=== PATIENT | female | born 1965 | race Caucasian/White ===

== ENCOUNTER 2016-12-06 13:19 | Emergency (ER) | payer OTHER ==
[2016-12-06] MEDS ORDERED: IPRATROPIUM-ALBUTEROL 3 ML NEB INHALATION STA (13:49)
[2016-12-06] MEDS ORDERED: predniSONE 20 MG TAB PO STA (13:50)
--- NOTE | 2016-12-06 13:52 | ED ---
General Adult HPI - General Chief complaint: Shortness of Breath Stated complaint: Cough/SOB Time Seen by Provider: 12/06/16 13:42 Source: patient Mode of arrival: ambulatory Limitations: no limitations - History of Present Illness Initial comments: 51-year-old female with history of asthma presenting for shortness of breath and cough. Patient states she's had symptoms for the past week. She states she 's having worsening productive cough. She has tried a home nebulizer treatment once without much improvement. She denies any recent antibiotic or steroid therapy. She denies any chest pain associated. She denies any fevers or chills. - Related Data Home Medications Medication Instructions Recorded Confirmed ARIPiprazole [Abilify] 30 mg PO HS 06/27/16 12/06/16 DULoxetine HCL [Cymbalta] 20 mg PO HS 06/27/16 12/06/16 Dextroamphetamine/Amphetamine 30 mg PO DAILY 06/27/16 12/06/16 [Adderall] clonazePAM [KlonoPIN] 1 mg PO HS 06/27/16 12/06/16 lamoTRIgine [LaMICtal] 25 mg PO HS 06/27/16 12/06/16 Previous Rx's Medication Instructions Recorded Albuterol Inhaler [Ventolin Hfa 2 puff INHALATION Q6HR PRN #1 12/06/16 Inhaler] inhaler Azithromycin [Zithromax] 250 mg PO DAILY #6 tab 12/06/16 predniSONE 40 mg PO DAILY #10 tab 12/06/16 Allergies Allergy/AdvReac Type Severity Reaction Status Date / Time No Known Allergies Allergy Verified 12/06/16 14:12 Review of Systems ROS Statement: Those systems with pertinent positive or pertinent negative responses have been documented in the HPI. ROS Other: All systems not noted in ROS Statement are negative. Past Medical History Past Medical History: Asthma History of Any Multi-Drug Resistant Organisms: None Reported Past Surgical History: No Surgical Hx Reported Past Psychological History: Bipolar Smoking Status: Current every day smoker Past Alcohol Use History: None Reported Past Drug Use History: None Reported General Exam - General Exam Comments Initial Comments: General: Awake and Alert. No acute distress. Does not appear acutely ill. Obese. Eyes: ROSHAN, EOM intact. No nystagmus. No scleral icterus. HENT: Atraumatic, normocephalic. Mucous membranes moist. Trachea midline. Neck: The neck is supple, there is no tenderness or JVD. Cardiovascular: Regular rate and rhythm. No murmur, rub, or gallop is appreciated. Distal pulses intact. Respiratory: Lungs are clear to auscultation bilaterally. Diffuse wheezes. No rales, rhonchi. No respiratory distress. Gastrointestinal: Soft, Nontender. No rebound or guarding. Non-distended. No masses or organomegaly noted. No CVA tenderness. Musculoskeletal: No tenderness. Normal ROM. No gross deformity. No strength deficits. Neurological: A&Ox3. CN II-XII grossly intact, There are no obvious motor or sensory deficits. Coordination appears grossly intact. Speech is normal. Skin: Skin is warm and dry and no rashes or lesions are noted. Psychiatric: Cooperative, appropriate mood & affect, normal judgment. Limitations: no limitations Course Vital Signs 12/06/16 12/06/16 12/06/16 13:26 13:41 14:04 Temperature 97.6 F Pulse Rate 90 91 Respiratory 18 20 Rate Blood Pressure 120/76 O2 Sat by Pulse 96 Oximetry 12/06/16 12/06/16 12/06/16 14:09 14:22 15:07 Temperature 98.2 F Pulse Rate 97 80 79 Respiratory 18 18 Rate Blood Pressure 142/69 O2 Sat by Pulse 98 98 Oximetry Medical Decision Making - Medical Decision Making 51-year-old female history of tobacco abuse and COPD presenting for cough and shortness of breath. Patient without any significant respiratory distress initial exam. She does have diffuse wheezes. She is given a breathing treatment as well as initial dose of steroids. Chest x-ray is performed without acute process. Given her productive cough and risk with smoking and COPD, plan to cover azithromycin as well as steroid therapy. Patient was written for inhaler. She states she has an old nebulizer that does not always work. Discussed close follow-up with PCP and to discuss getting a new one. On reevaluation patient's wheezing appears improved. She states she is feeling much better. Discussed concerning signs symptoms for immediate return to ED. Patient is otherwise stable for discharge home. Patient is agreeable with plan and discharge home. - Radiology Data Radiology results: report reviewed, image reviewed Disposition Clinical Impression: COPD exacerbation, Cough, Tobacco abuse Disposition: HOME SELF-CARE Condition: Stable Instructions: COPD (Chronic Obstructive Pulmonary Disease) (ED), Acute Cough ( ED) Prescriptions: Albuterol Inhaler [Ventolin Hfa Inhaler] 2 puff INHALATION Q6HR PRN #1 inhaler PRN Reason: Shortness Of Breath Azithromycin [Zithromax] 250 mg PO DAILY #6 tab predniSONE 40 mg PO DAILY #10 tab Referrals: Dora Esquivel III, MD [Primary Care Provider] - 1-2 days Time of Disposition: 14:51
[2016-12-06 14:24] VITALS: RESP 18
--- NOTE | 2016-12-06 14:37 | XR ---
EXAMINATION TYPE: XR chest 2V DATE OF EXAM: 12/06/2016 2:16 PM COMPARISON: 06/27/2016 INDICATION: Cough congestion history of asthma TECHNIQUE: Single frontal view of the chest is obtained. FINDINGS: The heart size is normal. The pulmonary vasculature is normal. The lungs are clear. IMPRESSION: 1. No acute pulmonary process.
[2016-12-06 15:11] VITALS: BP 142/69; PULSE 79; TEMP 98.2
== END 2016-12-06 15:11 | disposition home or self-care (01) ==
LOC: EC 13:19
DX: J44.1 Chronic obstructive pulmonary disease with (acute) exacerbation (principal); F31.9 Bipolar disorder, unspecified; F17.200 Nicotine dependence, unspecified, uncomplicated; Z79.899 Other long term (current) drug therapy
CPT/HCPCS: 99285; 94640; 71020; J7512

== ENCOUNTER 2017-10-17 15:17 | Emergency (ER) | payer OTHER ==
[2017-10-17] MEDS ORDERED: SODIUM CHLORIDE 0.9% 1,000 ML IV STA (15:56)
[2017-10-17 16:25] LABS: Basophils # (A) 0.1 k/uL (0-0.2); Basophils % (A) 1 %; Eosinophils # (A) 0.1 k/uL (0-0.7); Eosinophils % (A) 1 %; HCT 47.1 % (34.0-46.0); Lymphocytes # (A) 1.5 k/uL (1.0-4.8); Lymphocytes % (A) 21 %; MCH 28.6 pg (25.0-35.0); MCHC 31.8 g/dL (31.0-37.0); MCV 90.2 fL (80.0-100.0); Mean Platelet Volume 6.4; Monocytes # (A) 0.5 k/uL (0-1.0); Monocytes % (A) 7 %; Neutrophils # (A) 4.9 k/uL (1.3-7.7); Neutrophils % (A) 69 %; Platelet Count 356 k/uL (150-450); RBC 5.22 m/uL (3.80-5.40); RDW 14.5 % (11.5-15.5)
[2017-10-17 16:36] LABS: ALT 27 U/L (9-52); AST 17 U/L (14-36); Albumin 4.1 g/dL (3.5-5.0); Alkaline Phosphatase 96 U/L (38-126); Anion Gap 12 mmol/L; Blood Urea Nitrogen 11 mg/dL (7-17); Calcium 9.6 mg/dL (8.4-10.2); Carbon Dioxide 23 mmol/L (22-30); Chloride 107 mmol/L (98-107); Glucose 89 mg/dL (74-99); Magnesium 1.9 mg/dL (1.6-2.3); Potassium 4.3 mmol/L (3.5-5.1); Sodium 142 mmol/L (137-145); Total Bilirubin 0.5 mg/dL (0.2-1.3)
[2017-10-17 16:46] LABS: Creatine Kinase 57 U/L (30-135)
--- NOTE | 2017-10-17 16:51 | ED ---
General Adult HPI - General Chief complaint: Recheck/Abnormal Lab/Rx Stated complaint: tired/cannot urinate Time Seen by Provider: 10/17/17 15:50 Source: patient, RN notes reviewed Mode of arrival: ambulatory Limitations: no limitations - History of Present Illness Initial comments: This a 52-year-old female presents emergency Department with complaints of fatigue, decrease appetite. She states that over the last 2 days she just hasn' t felt well. States she does not want to eat or drink. She denies any chest pain, shortness breath, headache or dizziness. She states that she is very thirsty at this time but doesn't have the energy to eat or drink. She denies any known fever denies dysuria or hematuria denies any constipation or diarrhea. - Related Data Home Medications Medication Instructions Recorded Confirmed DULoxetine HCL [Cymbalta] 20 mg PO DAILY 06/27/16 10/17/17 Albuterol Inhaler [Ventolin Hfa 2 puff INHALATION RT-Q6H PRN 10/17/17 10/17/17 Inhaler] Previous Rx's Medication Instructions Recorded Ciprofloxacin HCl [Cipro] 500 mg PO Q12HR #10 tablet 10/17/17 Allergies Allergy/AdvReac Type Severity Reaction Status Date / Time No Known Allergies Allergy Verified 10/17/17 16:52 Review of Systems ROS Statement: Those systems with pertinent positive or pertinent negative responses have been documented in the HPI. ROS Other: All systems not noted in ROS Statement are negative. Past Medical History Past Medical History: Asthma History of Any Multi-Drug Resistant Organisms: None Reported Past Surgical History: No Surgical Hx Reported Past Psychological History: Bipolar Smoking Status: Current every day smoker Past Alcohol Use History: None Reported Past Drug Use History: None Reported General Exam Limitations: no limitations General appearance: alert, in no apparent distress Head exam: Present: atraumatic, normocephalic, normal inspection Eye exam: Present: normal appearance, PERRL, EOMI. Absent: scleral icterus, conjunctival injection, periorbital swelling ENT exam: Present: normal exam, normal oropharynx, mucous membranes moist, TM's normal bilaterally, normal external ear exam Neck exam: Present: normal inspection, full ROM. Absent: tenderness, meningismus, lymphadenopathy Respiratory exam: Present: normal lung sounds bilaterally. Absent: respiratory distress, wheezes, rales, rhonchi, stridor Cardiovascular Exam: Present: regular rate, normal rhythm, normal heart sounds. Absent: systolic murmur, diastolic murmur, rubs, gallop, clicks GI/Abdominal exam: Present: soft, normal bowel sounds. Absent: distended, tenderness, guarding, rebound, rigid Back exam: Absent: CVA tenderness (R), CVA tenderness (L) Skin exam: Present: warm, dry, intact, normal color. Absent: rash Course Vital Signs 10/17/17 15:32 Temperature 97.5 F L Pulse Rate 66 Respiratory 17 Rate Blood Pressure 129/81 O2 Sat by Pulse 93 L Oximetry EKG Findings - EKG Comments: EKG Findings:: EKG performed at 16:16 normal sinus rhythm with a rate of 66. pr 168 QRS 82 QT/QTC 414/434 Medical Decision Making - Medical Decision Making 52-year-old female presented emergency department for weakness, not feeling well. Patient does have urinary tract infection. Patient's labwork otherwise unremarkable. Patient was well-hydrated emergency department. She'll be discharged on antibiotics. - Lab Data Result diagrams: 10/17/17 16:03 10/17/17 16:03 Lab Results 10/17/17 10/17/17 10/17/17 Range/Units 16:03 16:03 16:03 WBC 7.0 (3.8-10.6) k/uL RBC 5.22 (3.80-5.40) m/uL Hgb 15.0 (11.4-16.0) gm/dL Hct 47.1 H (34.0-46.0) % MCV 90.2 (80.0-100.0) fL MCH 28.6 (25.0-35.0) pg MCHC 31.8 (31.0-37.0) g/dL RDW 14.5 (11.5-15.5) % Plt Count 356 (150-450) k/uL Neutrophils % 69 % Lymphocytes % 21 % Monocytes % 7 % Eosinophils % 1 % Basophils % 1 % Neutrophils # 4.9 (1.3-7.7) k/uL Lymphocytes # 1.5 (1.0-4.8) k/uL Monocytes # 0.5 (0-1.0) k/uL Eosinophils # 0.1 (0-0.7) k/uL Basophils # 0.1 (0-0.2) k/uL Sodium 142 (137-145) mmol/L Potassium 4.3 (3.5-5.1) mmol/L Chloride 107 (98-107) mmol/L Carbon Dioxide 23 (22-30) mmol/L Anion Gap 12 mmol/L BUN 11 (7-17) mg/dL Creatinine 0.70 (0.52-1.04) mg/dL Est GFR (MDRD) Af Amer >60 (>60 ml/min/1.73 sqM) Est GFR (MDRD) Non-Af >60 (>60 ml/min/1.73 sqM) Glucose 89 (74-99) mg/dL Calcium 9.6 (8.4-10.2) mg/dL Magnesium 1.9 (1.6-2.3) mg/dL Total Bilirubin 0.5 (0.2-1.3) mg/dL AST 17 (14-36) U/L ALT 27 (9-52) U/L Alkaline Phosphatase 96 (38-126) U/L Total Creatine Kinase 57 (30-135) U/L CK-MB (CK-2) 0.2 (0.0-2.4) ng/mL CK-MB (CK-2) Rel Index 0.4 Troponin I <0.012 (0.000-0.034) ng/mL Total Protein 7.0 (6.3-8.2) g/dL Albumin 4.1 (3.5-5.0) g/dL TSH 1.010 (0.465-4.680) mIU/L Urine Color Urine Appearance (Clear) Urine pH (5.0-8.0) Ur Specific [place] (1.001-1.035) Urine Protein (Negative) Urine Glucose (UA) (Negative) Urine Blood (Negative) Urine Nitrite (Negative) Urine Bilirubin (Negative) Urine Urobilinogen (<2.0) mg/dL Ur Leukocyte Esterase (Negative) Urine RBC (0-5) /hpf Urine WBC (0-5) /hpf Ur Squamous Epith Cells (0-4) /hpf Urine Mucus (None) /hpf 10/17/17 Range/Units 16:43 WBC (3.8-10.6) k/uL RBC (3.80-5.40) m/uL Hgb (11.4-16.0) gm/dL Hct (34.0-46.0) % MCV (80.0-100.0) fL MCH (25.0-35.0) pg MCHC (31.0-37.0) g/dL RDW (11.5-15.5) % Plt Count (150-450) k/uL Neutrophils % % Lymphocytes % % Monocytes % % Eosinophils % % Basophils % % Neutrophils # (1.3-7.7) k/uL Lymphocytes # (1.0-4.8) k/uL Monocytes # (0-1.0) k/uL Eosinophils # (0-0.7) k/uL Basophils # (0-0.2) k/uL Sodium (137-145) mmol/L Potassium (3.5-5.1) mmol/L Chloride (98-107) mmol/L Carbon Dioxide (22-30) mmol/L Anion Gap mmol/L BUN (7-17) mg/dL Creatinine (0.52-1.04) mg/dL Est GFR (MDRD) Af Amer (>60 ml/min/1.73 sqM) Est GFR (MDRD) Non-Af (>60 ml/min/1.73 sqM) Glucose (74-99) mg/dL Calcium (8.4-10.2) mg/dL Magnesium (1.6-2.3) mg/dL Total Bilirubin (0.2-1.3) mg/dL AST (14-36) U/L ALT (9-52) U/L Alkaline Phosphatase (38-126) U/L Total Creatine Kinase (30-135) U/L CK-MB (CK-2) (0.0-2.4) ng/mL CK-MB (CK-2) Rel Index Troponin I (0.000-0.034) ng/mL Total Protein (6.3-8.2) g/dL Albumin (3.5-5.0) g/dL TSH (0.465-4.680) mIU/L Urine Color Yellow Urine Appearance Cloudy H (Clear) Urine pH 5.5 (5.0-8.0) Ur Specific [place] 1.023 (1.001-1.035) Urine Protein 1+ H (Negative) Urine Glucose (UA) Negative (Negative) Urine Blood Negative (Negative) Urine Nitrite Positive H (Negative) Urine Bilirubin Negative (Negative) Urine Urobilinogen 4.0 (<2.0) mg/dL Ur Leukocyte Esterase Small H (Negative) Urine RBC 1 (0-5) /hpf Urine WBC 16 H (0-5) /hpf Ur Squamous Epith Cells 3 (0-4) /hpf Urine Mucus Many H (None) /hpf Disposition Clinical Impression: UTI (urinary tract infection), Fatigue Disposition: HOME SELF-CARE Condition: Stable Instructions: Urinary Tract Infection in Women (ED) Additional Instructions: Please return to the Emergency Department if symptoms worsen or any other concerns. Prescriptions: Ciprofloxacin HCl [Cipro] 500 mg PO Q12HR #10 tablet Referrals: Ubaldo Tee DO [Primary Care Provider] - 1-2 days Time of Disposition: 17:17
--- NOTE | 2017-10-17 16:53 | XR ---
EXAMINATION TYPE: XR chest 2V DATE OF EXAM: 10/17/2017 COMPARISON: 12/06/2016 HISTORY: Weakness TECHNIQUE: Frontal and lateral views of the chest are obtained. FINDINGS: Heart and mediastinum are normal. Lungs are clear. Diaphragm is normal. Bony thorax appear s intact. IMPRESSION: No active cardiopulmonary disease. No significant change compared to old exam.
[2017-10-17 16:59] LABS: Creatine Kinase MB 0.2 ng/mL (0.0-2.4); Troponin I <0.012 ng/mL (0.000-0.034)
[2017-10-17 17:09] LABS: Appearance,Urine Cloudy (Clear); Bilirubin,Urine Negative (Negative); Blood,Urine Negative (Negative); Color,Urine Yellow; Glucose,Urine (UA) Negative (Negative); Ketones,Urine 2+ (Negative); Leukocyte Esterase,Urine Small (Negative); Mucus,Urine Many /hpf; Nitrite,Urine Positive (Negative); PH, Urine 5.5 (5.0-8.0); Protein,Urine 1+ (Negative); RBC,Urine 1 /hpf (0-5); Specific Gravity,Urine 1.023 (1.001-1.035); Squamous Epithelial Cell,Urine 3 /hpf (0-4); WBC,Urine 16 /hpf (0-5)
[2017-10-17 17:46] VITALS: BP 120/72; PULSE 86; RESP 16; TEMP 98.4
== END 2017-10-17 17:45 | disposition home or self-care (01) ==
LOC: EC 15:17
DX: N39.0 Urinary tract infection, site not specified (principal); R63.1 Polydipsia; F31.9 Bipolar disorder, unspecified; F17.200 Nicotine dependence, unspecified, uncomplicated; Z79.899 Other long term (current) drug therapy
CPT/HCPCS: 36415; 71046; 80053; 81001; 82550; 82553; 83735; 84443; 84484; 85025; 93005; 96360; 99284

== ENCOUNTER 2017-12-18 15:16 | Emergency (ER) | payer OTHER ==
[2017-12-18 16:07] VITALS: BP 105/70; PULSE 79; RESP 18; TEMP 98.3
--- NOTE | 2017-12-18 16:49 | ED ---
General Adult HPI - General Chief complaint: Animal Bite Stated complaint: Cat Bite Time Seen by Provider: 12/18/17 16:30 Source: patient, RN notes reviewed Mode of arrival: ambulatory Limitations: no limitations - History of Present Illness Initial comments: 52-year-old female presents to the emergency department for chief complaint of cat bite x 1 hour. Patient states that an hour ago her cat was about 5 or other cat when she intervened and was bitten and scratched on the right hand. Patient states he has cats are up-to-date with the rabies vaccinations and all other vaccinations. Patient states these cats are her own cats. Patient denies any other complaints including shortness of breath, chest pain, abdominal pain, nausea or vomiting. - Related Data Home Medications Medication Instructions Recorded Confirmed DULoxetine HCL [Cymbalta] 20 mg PO DAILY 06/27/16 10/17/17 Albuterol Inhaler [Ventolin Hfa 2 puff INHALATION RT-Q6H PRN 10/17/17 10/17/17 Inhaler] Previous Rx's Medication Instructions Recorded Ciprofloxacin HCl [Cipro] 500 mg PO Q12HR #10 tablet 10/17/17 Amoxicillin/Potassium Clav 1 tab PO Q12HR #20 tab 12/18/17 [Augmentin 875-125 Tablet] Allergies Allergy/AdvReac Type Severity Reaction Status Date / Time No Known Allergies Allergy Verified 12/18/17 16:07 Review of Systems ROS Statement: Those systems with pertinent positive or pertinent negative responses have been documented in the HPI. ROS Other: All systems not noted in ROS Statement are negative. Past Medical History Past Medical History: Asthma History of Any Multi-Drug Resistant Organisms: None Reported Past Surgical History: No Surgical Hx Reported Past Psychological History: Bipolar Smoking Status: Current every day smoker Past Alcohol Use History: None Reported Past Drug Use History: None Reported General Exam Limitations: no limitations General appearance: alert, in no apparent distress Head exam: Present: atraumatic Respiratory exam: Present: normal lung sounds bilaterally. Absent: respiratory distress, wheezes, rales, rhonchi, stridor Cardiovascular Exam: Present: regular rate, normal rhythm, normal heart sounds. Absent: systolic murmur, diastolic murmur, rubs, gallop, clicks Extremities exam: Present: normal inspection, full ROM (in RUE. All fingers have full flexion and extension with resistance. No tendon injury. No deeper tissue injury. ), normal capillary refill (< 2 seconds and radial pulse 2+ in RUE.), other (there is a 0.5 cm laceration on the proximal 2nd metatarsal and 2 cm laceration on the proximal 4th metatarsal of the L hand. There is some ecchymosis around the lacerations. No redness or drainage from the wounds. No signs of infection. No streaking redness. ). Absent: tenderness (in RUE), pedal edema, joint swelling, calf tenderness Course Vital Signs 12/18/17 16:04 Temperature 98.3 F Pulse Rate 79 Respiratory 18 Rate Blood Pressure 105/70 O2 Sat by Pulse 94 L Oximetry Medical Decision Making - Medical Decision Making 52-year-old female presents to the emergency department for a chief complaint of Bites to the right hand. There are 2 small lacerations on the dorsal right hand as well as scratches. No signs of infection noted. Neurovascular intact in full range of motion of the right hand. Wound was soaked in sterile water, iodine, and soap for 20 minutes. Wound was cleaned out with saline jet lavage. It was cleaned out with iodine. Wounds were covered with bacitracin and Band- Aids. Wounds were left open to allow for drainage. Patient is to follow-up with orthopedics in one to 2 days. She can follow-up with her primary care provider if she cannot get into see orthopedics. She is to return to the emergency Department if she notices any signs of infection, fever, or worsening symptoms. Signs of infection were discussed. Patient agrees with this route of action. Disposition Clinical Impression: Cat bite Disposition: HOME SELF-CARE Condition: Good Instructions: Animal Bite (ED) Additional Instructions: Please keep wounds clean. You may cover wounds with a loose Band-Aid. Finish antibiotic as directed. You may ice and elevate the hand as discussed. Follow up with orthopedics tomorrow. If any signs of infection occur such as spreading redness, streaking redness, drainage, or fevers please return to the emergency department. Prescriptions: Amoxicillin/Potassium Clav [Augmentin 875-125 Tablet] 1 tab PO Q12HR #20 tab Is patient prescribed a controlled substance at d/c from ED?: No Referrals: None,Stated [Primary Care Provider] - 1-2 days Krysta Hwang DO [Doctor of Osteopathic Medicine] - 1-2 days Time of Disposition: 17:11
[2017-12-18] MEDS ORDERED: DIPH,PERTUS(ACELL)TETVAC-LF 0.5 ML VIAL IM ONE (16:53)
== END 2017-12-18 17:37 | disposition home or self-care (01) ==
LOC: EC 15:16
DX: S61.411A Laceration without foreign body of right hand, initial encounter (principal); F31.9 Bipolar disorder, unspecified; F17.200 Nicotine dependence, unspecified, uncomplicated; Z79.899 Other long term (current) drug therapy; Z23 Encounter for immunization; W55.01XA Bitten by cat, initial encounter; Y92.009 Unspecified place in unspecified non-institutional (private) residence as the place of occurrence of the external cause
CPT/HCPCS: 90471; 90715; 99283

== ENCOUNTER 2018-05-27 14:44 | Emergency (ER) | payer OTHER ==
[2018-05-27 14:57] VITALS: RESP 18; TEMP 99.2
[2018-05-27] MEDS ORDERED: ASPIRIN 81 MG PO STA (15:09)
[2018-05-27] MEDS ORDERED: methylPREDNISolone SOD SUCCI 125 MG/2 ML VIAL IV STA (15:09)
[2018-05-27] MEDS ORDERED: IPRATROPIUM-ALBUTEROL 3 ML NEB INHALATION STA (15:09)
--- NOTE | 2018-05-27 15:19 | ED ---
General Adult HPI - General Chief complaint: Shortness of Breath Stated complaint: Sob Time Seen by Provider: 05/27/18 15:01 Source: patient Mode of arrival: EMS Limitations: no limitations - History of Present Illness Initial comments: Patient is a 53-year-old female with a history of asthma, and emphysema who presents with a chief complaint of shortness of breath. This been going on for about a week and half. Patient states this is gradually been getting worse. She cannot identify an inciting incident. She is a current pack per day smoker is trying to quit. The patient states that today she became more short of breath and experienced chest pain, diaphoresis, had one episode of emesis, and felt lightheaded. She states that the chest pain was sharp in nature and squeezing. She states that she is currently pain-free. She has not had a recent stress test. - Related Data Home Medications Medication Instructions Recorded Confirmed DULoxetine HCL [Cymbalta] 20 mg PO DAILY 06/27/16 12/18/17 Albuterol Inhaler [Ventolin Hfa 2 puff INHALATION RT-Q6H PRN 10/17/17 12/18/17 Inhaler] Previous Rx's Medication Instructions Recorded Amoxicillin/Potassium Clav 1 tab PO Q12HR #20 tab 12/18/17 [Augmentin 875-125 Tablet] Allergies Allergy/AdvReac Type Severity Reaction Status Date / Time No Known Allergies Allergy Verified 12/18/17 16:07 Review of Systems ROS Statement: Those systems with pertinent positive or pertinent negative responses have been documented in the HPI. ROS Other: All systems not noted in ROS Statement are negative. Respiratory: Reports: dyspnea, wheezes Cardiovascular: Reports: chest pain Past Medical History Past Medical History: Asthma History of Any Multi-Drug Resistant Organisms: None Reported Past Surgical History: Tubal Ligation Past Psychological History: Bipolar, Depression Smoking Status: Current every day smoker Past Alcohol Use History: None Reported Past Drug Use History: None Reported General Exam Limitations: no limitations General appearance: alert, in no apparent distress Head exam: Present: atraumatic, normocephalic Eye exam: Present: normal appearance, PERRL ENT exam: Present: normal exam, mucous membranes moist Neck exam: Present: normal inspection Respiratory exam: Present: normal lung sounds bilaterally. Absent: respiratory distress, wheezes Cardiovascular Exam: Present: regular rate, normal rhythm GI/Abdominal exam: Present: soft. Absent: distended, tenderness Rectal exam: Present: deferred Extremities exam: Present: normal inspection Back exam: Present: normal inspection Neurological exam: Present: alert, oriented X3 Psychiatric exam: Present: normal affect, normal mood Skin exam: Present: warm, dry, intact Course Vital Signs 05/27/18 05/27/18 05/27/18 14:53 15:53 16:03 Temperature 99.2 F Pulse Rate 90 80 84 Respiratory 18 Rate Blood Pressure 108/68 O2 Sat by Pulse 94 L Oximetry 05/27/18 05/27/18 16:18 17:31 Temperature 99.2 F Pulse Rate 82 89 Respiratory 18 Rate Blood Pressure 110/59 O2 Sat by Pulse 98 Oximetry Medical Decision Making - Medical Decision Making Review presents with chief complaint of shortness of breath and chest pain. On initial evaluation, vitals are stable, patient is in no acute distress. She received 1 DuoNeb and round and states that her breathing is much improved. Patient will be evaluated with basic labs including troponin, and chest x-ray. Patient given 3 breathing treatments, Solu-Medrol, and aspirin on arrival. Pending EKG. 3:37 PM EKG performed at 3:10 PM shows normal sinus rhythm with a rate of 84 bpm. EKG is otherwise unremarkable. 5:59 PM Lab evaluation this patient is unremarkable. Initial troponin is negative. On reevaluation, patient is improved after breathing treatments and steroids. Case discussed with Dr. Resendez who agrees with admission for stress test. Results and I discussed with the patient, she is agreeable. - Lab Data Result diagrams: 05/27/18 15:00 05/27/18 15:00 Lab Results 05/27/18 05/27/18 05/27/18 Range/Units 15:00 15:00 15:00 WBC 8.3 (3.8-10.6) k/uL RBC 5.27 (3.80-5.40) m/uL Hgb 16.2 H (11.4-16.0) gm/dL Hct 46.7 H (34.0-46.0) % MCV 88.7 (80.0-100.0) fL MCH 30.7 (25.0-35.0) pg MCHC 34.6 (31.0-37.0) g/dL RDW 13.9 (11.5-15.5) % Plt Count 354 (150-450) k/uL Neutrophils % 66 % Lymphocytes % 24 % Monocytes % 6 % Eosinophils % 2 % Basophils % 1 % Neutrophils # 5.5 (1.3-7.7) k/uL Lymphocytes # 2.0 (1.0-4.8) k/uL Monocytes # 0.5 (0-1.0) k/uL Eosinophils # 0.2 (0-0.7) k/uL Basophils # 0.1 (0-0.2) k/uL D-Dimer (<0.60) mg/L FEU Sodium 142 (137-145) mmol/L Potassium 4.6 (3.5-5.1) mmol/L Chloride 111 H (98-107) mmol/L Carbon Dioxide 23 (22-30) mmol/L Anion Gap 8 mmol/L BUN 11 (7-17) mg/dL Creatinine 0.70 (0.52-1.04) mg/dL Est GFR (CKD-EPI)AfAm >90 (>60 ml/min/1.73 sqM) Est GFR (CKD-EPI)NonAf >90 (>60 ml/min/1.73 sqM) Glucose 94 (74-99) mg/dL Calcium 9.4 (8.4-10.2) mg/dL Magnesium 1.9 (1.6-2.3) mg/dL Total Bilirubin 0.5 (0.2-1.3) mg/dL AST 17 (14-36) U/L ALT 12 (9-52) U/L Alkaline Phosphatase 76 (38-126) U/L Troponin I (0.000-0.034) ng/mL NT-Pro-B Natriuret Pep 42 pg/mL Total Protein 6.8 (6.3-8.2) g/dL Albumin 3.9 (3.5-5.0) g/dL 05/27/18 05/27/18 Range/Units 15:00 15:00 WBC (3.8-10.6) k/uL RBC (3.80-5.40) m/uL Hgb (11.4-16.0) gm/dL Hct (34.0-46.0) % MCV (80.0-100.0) fL MCH (25.0-35.0) pg MCHC (31.0-37.0) g/dL RDW (11.5-15.5) % Plt Count (150-450) k/uL Neutrophils % % Lymphocytes % % Monocytes % % Eosinophils % % Basophils % % Neutrophils # (1.3-7.7) k/uL Lymphocytes # (1.0-4.8) k/uL Monocytes # (0-1.0) k/uL Eosinophils # (0-0.7) k/uL Basophils # (0-0.2) k/uL D-Dimer 0.30 (<0.60) mg/L FEU Sodium (137-145) mmol/L Potassium (3.5-5.1) mmol/L Chloride (98-107) mmol/L Carbon Dioxide (22-30) mmol/L Anion Gap mmol/L BUN (7-17) mg/dL Creatinine (0.52-1.04) mg/dL Est GFR (CKD-EPI)AfAm (>60 ml/min/1.73 sqM) Est GFR (CKD-EPI)NonAf (>60 ml/min/1.73 sqM) Glucose (74-99) mg/dL Calcium (8.4-10.2) mg/dL Magnesium (1.6-2.3) mg/dL Total Bilirubin (0.2-1.3) mg/dL AST (14-36) U/L ALT (9-52) U/L Alkaline Phosphatase (38-126) U/L Troponin I <0.012 (0.000-0.034) ng/mL NT-Pro-B Natriuret Pep pg/mL Total Protein (6.3-8.2) g/dL Albumin (3.5-5.0) g/dL Disposition Clinical Impression: COPD exacerbation, Moderate risk chest pain Disposition: ADMITTED IP TO THIS HOSP Condition: Good Is patient prescribed a controlled substance at d/c from ED?: No Referrals: Hawk Masterson Jr, [Primary Care Provider] - 1-2 days - Out of Hospital Transfer - Req. Specs Out of Hospital Transfer - Requested Specifics: Telemetry Unit
[2018-05-27 15:54] LABS: ALT 12 U/L (9-52); AST 17 U/L (14-36); Albumin 3.9 g/dL (3.5-5.0); Alkaline Phosphatase 76 U/L (38-126); Anion Gap 8 mmol/L; Blood Urea Nitrogen 11 mg/dL (7-17); Calcium 9.4 mg/dL (8.4-10.2); Carbon Dioxide 23 mmol/L (22-30); Chloride 111 mmol/L (98-107); Glucose 94 mg/dL (74-99); Magnesium 1.9 mg/dL (1.6-2.3); Potassium 4.6 mmol/L (3.5-5.1); Sodium 142 mmol/L (137-145); Total Bilirubin 0.5 mg/dL (0.2-1.3); Total Protein 6.8 g/dL (6.3-8.2)
[2018-05-27 16:09] LABS: Basophils # (A) 0.1 k/uL (0-0.2); Basophils % (A) 1 %; Eosinophils # (A) 0.2 k/uL (0-0.7); Eosinophils % (A) 2 %; HCT 46.7 % (34.0-46.0); HGB 16.2 gm/dL (11.4-16.0); Lymphocytes % (A) 24 %; MCH 30.7 pg (25.0-35.0); MCHC 34.6 g/dL (31.0-37.0); MCV 88.7 fL (80.0-100.0); Mean Platelet Volume 6.6; Monocytes # (A) 0.5 k/uL (0-1.0); Monocytes % (A) 6 %; Neutrophils # (A) 5.5 k/uL (1.3-7.7); Neutrophils % (A) 66 %; Platelet Count 354 k/uL (150-450); RBC 5.27 m/uL (3.80-5.40); RDW 13.9 % (11.5-15.5); WBC 8.3 k/uL (3.8-10.6)
--- NOTE | 2018-05-27 17:35 | XR ---
EXAMINATION TYPE: XR chest 2V DATE OF EXAM: 05/27/2018 COMPARISON: 10/17/2017 HISTORY: Chest pain and difficulty breathing TECHNIQUE: Frontal and lateral views of the chest are obtained. FINDINGS: There is no focal air space opacity, pleural effusion, or pneumothorax seen. The cardiac silhouette size is within normal limits. The osseous structures are intact. IMPRESSION: No acute cardiopulmonary process.
[2018-05-27] MEDS ORDERED: NALOXONE 0.4 MG/ML 1 ML VIAL IV PRN (18:00)
[2018-05-27 18:52] VITALS: BP 115/59; PULSE 94
== END 2018-05-27 18:47 | disposition left against medical advice (07) ==
LOC: EC 14:44 → UNDOADMOB 18:00 → 3OBS 18:00 → EC 18:47
DX: J44.1 Chronic obstructive pulmonary disease with (acute) exacerbation (principal); F32.9 Major depressive disorder, single episode, unspecified; F17.210 Nicotine dependence, cigarettes, uncomplicated; Z79.899 Other long term (current) drug therapy
CPT/HCPCS: 36415; 94640; 93005; 85379; 83880; 80053; 83735; 84484; 85025; 71046; 99285; 96374; J2930

== ENCOUNTER 2018-06-09 14:04 | Observation (INO) | payer OTHER ==
[2018-06-09] MEDS ORDERED: SODIUM CHLORIDE 0.9% 500 ML 500 ML IV STA (14:29)
--- NOTE | 2018-06-09 14:47 | ED ---
Chest Pain HPI - General Chief Complaint: Chest Pain Stated Complaint: chest pain Time Seen by Provider: 06/09/18 14:27 Source: patient, RN notes reviewed, old records reviewed Mode of arrival: ambulatory Limitations: no limitations - History of Present Illness Initial Comments: This is a 33-year-old female the ER for evaluation chest pain. Patient is underlying history of chest pain asthma COPD. Patient states she's had chest pain on and off for about 2 weeks worsening today. No fevers, she does have increased cough and congestion and increasing exertional dyspnea. No recent travel history or sick contacts, no prior history of PE. Patient does not have high blood pressure MD Complaint: chest pain -: week(s) (2) Onset: during rest, during exertion Pain Location: substernal, left chest Pain Radiation: none Severity: mild Severity scale (1-10): 4 Quality: tightness, sharp (With cough) Consistency: intermittent Improves With: nothing Worsens With: inspiration Other Symptoms: cough Treatments Prior to Arrival: none - Related Data Home Medications Medication Instructions Recorded Confirmed Amitriptyline HCl 25 mg PO HS 06/09/18 06/09/18 Ranitidine HCl 150 mg PO HS 06/09/18 06/09/18 Allergies Allergy/AdvReac Type Severity Reaction Status Date / Time No Known Allergies Allergy Verified 12/18/17 16:07 Review of Systems ROS Statement: Those systems with pertinent positive or pertinent negative responses have been documented in the HPI. ROS Other: All systems not noted in ROS Statement are negative. EKG Findings - EKG Comments: EKG Findings:: EKG shows sinus rhythm rate of 84, ME 160, QRS 86, QTc 432 Past Medical History Past Medical History: Asthma, Chest Pain / Angina History of Any Multi-Drug Resistant Organisms: None Reported Past Surgical History: Tubal Ligation Past Psychological History: Bipolar, Depression Smoking Status: Current every day smoker Past Alcohol Use History: None Reported Past Drug Use History: None Reported General Exam Limitations: no limitations General appearance: alert, in no apparent distress, anxious Head exam: Present: atraumatic, normocephalic, normal inspection Eye exam: Present: normal appearance, PERRL, EOMI. Absent: scleral icterus, conjunctival injection, periorbital swelling ENT exam: Present: normal exam, mucous membranes moist Neck exam: Present: normal inspection. Absent: tenderness, meningismus, lymphadenopathy Respiratory exam: Present: normal lung sounds bilaterally, wheezes, accessory muscle use, decreased breath sounds, prolonged expiratory. Absent: respiratory distress, rales, rhonchi, stridor Cardiovascular Exam: Present: regular rate, normal rhythm, normal heart sounds. Absent: systolic murmur, diastolic murmur, rubs, gallop, clicks GI/Abdominal exam: Present: soft, normal bowel sounds. Absent: distended, tenderness, guarding, rebound, rigid Extremities exam: Present: normal inspection, full ROM, normal capillary refill. Absent: tenderness, pedal edema, joint swelling, calf tenderness Back exam: Present: normal inspection Neurological exam: Present: alert, oriented X3, CN II-XII intact Psychiatric exam: Present: normal affect, normal mood Skin exam: Present: warm, dry, intact, normal color. Absent: rash Course Vital Signs 06/09/18 14:05 Temperature 97.8 F Pulse Rate 92 Respiratory 18 Rate Blood Pressure 113/79 O2 Sat by Pulse 100 Oximetry - Reevaluation(s) Reevaluation #1: 06/09/18 16:19 Medical records thoroughly reviewed, patient was seen in the emergency department last week for similar complaint, patient states she was scared for admission. Reevaluation #2: 06/09/18 16:19 Patient is continuous chest pain shortness of breath Reevaluation #3: 06/09/18 16:20 Chest x-rays negative for acute disease Chest Pain MDM - MDM 53 female the ER with atypical chest pain. Patient is smoker with underlying COPD coming in with chest pain, patient will be admitted for breathing treatments secondary to COPD exacerbation, steroids, trending of troponin Critical Care Time Critical Care Time: Yes Total Critical Care Time: 31 Disposition Clinical Impression: COPD exacerbation, Chest pain, Acute exacerbation of COPD with asthma Disposition: ADMITTED IP TO THIS HOSP Condition: Undetermined Is patient prescribed a controlled substance at d/c from ED?: No Referrals: Hawk Masterson Jr, [Primary Care Provider] - 1-2 days
--- NOTE | 2018-06-09 14:54 | XR ---
EXAMINATION TYPE: XR chest 2V DATE OF EXAM: 06/09/2018 COMPARISON: 05/27/2018 HISTORY: Left-sided chest pain and shortness of breath TECHNIQUE: Frontal and lateral views of the chest are obtained. FINDINGS: Copious soft tissues partially obscure the lower lungs on the frontal view however no foca l airspace disease is seen on the lateral view. There is no pulmonary vascular congestion, pleural ef fusion, or pneumothorax seen. The cardiac silhouette size is upper limits of normal. The osseous s tructures are intact. Mild acromio clavicular arthropathy is seen. IMPRESSION: No acute cardiopulmonary process.
[2018-06-09 15:13] LABS: Basophils # (A) 0.1 k/uL (0-0.2); Basophils % (A) 1 %; Eosinophils # (A) 0.2 k/uL (0-0.7); Eosinophils % (A) 2 %; HCT 47.6 % (34.0-46.0); HGB 15.7 gm/dL (11.4-16.0); Lymphocytes # (A) 2.3 k/uL (1.0-4.8); Lymphocytes % (A) 23 %; MCH 30.3 pg (25.0-35.0); MCHC 32.9 g/dL (31.0-37.0); Mean Platelet Volume 6.5; Monocytes # (A) 0.5 k/uL (0-1.0); Monocytes % (A) 5 %; Neutrophils # (A) 6.9 k/uL (1.3-7.7); Neutrophils % (A) 68 %; Platelet Count 362 k/uL (150-450); RBC 5.18 m/uL (3.80-5.40); RDW 13.8 % (11.5-15.5); WBC 10.1 k/uL (3.8-10.6)
[2018-06-09 15:20] LABS: Creatine Kinase 33 U/L (30-135)
[2018-06-09 15:22] LABS: ALT 19 U/L (9-52); AST 15 U/L (14-36); Albumin 4.2 g/dL (3.5-5.0); Alkaline Phosphatase 82 U/L (38-126); Anion Gap 8 mmol/L; Blood Urea Nitrogen 11 mg/dL (7-17); Calcium 9.7 mg/dL (8.4-10.2); Carbon Dioxide 23 mmol/L (22-30); Chloride 110 mmol/L (98-107); Glucose 81 mg/dL (74-99); Lipase 34 U/L (23-300); Magnesium 2.1 mg/dL (1.6-2.3); Potassium 4.3 mmol/L (3.5-5.1); Sodium 141 mmol/L (137-145); Total Bilirubin 0.4 mg/dL (0.2-1.3); Total Protein 7.5 g/dL (6.3-8.2)
[2018-06-09 15:26] LABS: D-Dimer 0.4 mg/L FEU (<0.60); INR 0.9 (<1.2); Partial Thromboplastin Time 24.6 sec (22.0-30.0); Prothrombin Time 9.4 sec (9.0-12.0)
[2018-06-09 15:33] LABS: Creatine Kinase MB <0.2 ng/mL (0.0-2.4); Troponin I <0.012 ng/mL (0.000-0.034)
[2018-06-09] MEDS ORDERED: KETOROLAC 30 MG/ML 1 ML VIAL IVP STA (15:36)
[2018-06-09] MEDS ORDERED: IPRATROPIUM-ALBUTEROL 3 ML NEB INHALATION STA (15:36)
[2018-06-09] MEDS ORDERED: MORPHINE SULFATE 4 MG/ML SYRINGE IVP STA (15:36)
[2018-06-09] MEDS ORDERED: methylPREDNISolone SOD SUCCI 125 MG/2 ML VIAL IV STA (15:36)
[2018-06-09] MEDS ORDERED: NITROGLYCERIN SL TABS 0.4 MG TAB SUBLINGUAL PRN (16:10)
[2018-06-09] MEDS ORDERED: ASPIRIN 81 MG PO STA (16:10)
[2018-06-09] MEDS: SODIUM CHLORIDE 0.9% 1,000 ML IV SCH (18:25)
[2018-06-09] MEDS: IPRATROPIUM-ALBUTEROL 3 ML NEB INHALATION SCH ×3 (18:43→23:37)
[2018-06-09 20:59] LABS: Glucose,Whole Blood 156 mg/dL (75-99)
[2018-06-09 21:07] LABS: Creatine Kinase 30 U/L (30-135)
[2018-06-09] MEDS: FAMOTIDINE 20 MG TAB PO SCH (21:14)
[2018-06-09] MEDS: AMITRIPTYLINE HCL 25 MG TAB PO SCH (21:14)
[2018-06-09] MEDS: methylPREDNISolone SOD SUCCI 125 MG/2 ML VIAL IV SCH ×2 (21:14→23:22)
[2018-06-09] MEDS: MORPHINE SULFATE 4 MG/ML SYRINGE IVP PRN (21:14)
[2018-06-09] MEDS: INSULIN ASPART 100 UNIT/ML 1 ML 10 ML VIAL SQ SCH (21:16)
[2018-06-09 21:21] LABS: Creatine Kinase MB <0.2 ng/mL (0.0-2.4); Troponin I <0.012 ng/mL (0.000-0.034)
[2018-06-09] MEDS: MELATONIN 5 MG TABLET PO SCH ×2 (22:44→23:21)
[2018-06-10] MEDS: MORPHINE SULFATE 4 MG/ML SYRINGE IVP PRN ×4 (02:28→22:10)
[2018-06-10] MEDS: SODIUM CHLORIDE 0.9% 1,000 ML IV SCH ×3 (02:29→21:39)
[2018-06-10 03:07] LABS: Cholesterol 212 mg/dL (<200); HDL Cholesterol 46 mg/dL (40-60); LDL Cholesterol,Calculated 155 mg/dL (0-99); Triglycerides 55 mg/dL (<150)
[2018-06-10] MEDS: IPRATROPIUM-ALBUTEROL 3 ML NEB INHALATION SCH ×5 (03:22→21:03)
[2018-06-10 03:24] LABS: Creatine Kinase 28 U/L (30-135)
[2018-06-10 03:38] LABS: Creatine Kinase MB <0.2 ng/mL (0.0-2.4); Troponin I <0.012 ng/mL (0.000-0.034)
[2018-06-10 06:36] LABS: Glucose,Whole Blood 149 mg/dL (75-99)
[2018-06-10] MEDS: methylPREDNISolone SOD SUCCI 125 MG/2 ML VIAL IV SCH ×2 (06:39→11:37)
[2018-06-10] MEDS: INSULIN ASPART 100 UNIT/ML 1 ML 10 ML VIAL SQ SCH ×4 (06:40→21:41)
[2018-06-10 07:02] LABS: Basophils % (A) 0 %; Eosinophils % (A) 0 %; HCT 42.4 % (34.0-46.0); HGB 13.6 gm/dL (11.4-16.0); Lymphocytes # (A) 0.6 k/uL (1.0-4.8); Lymphocytes % (A) 6 %; MCH 29.9 pg (25.0-35.0); MCHC 32.2 g/dL (31.0-37.0); Mean Platelet Volume 6.6; Monocytes # (A) 0.1 k/uL (0-1.0); Monocytes % (A) 1 %; Neutrophils % (A) 93 %; Platelet Count 308 k/uL (150-450); RBC 4.56 m/uL (3.80-5.40); RDW 13.9 % (11.5-15.5); WBC 10.7 k/uL (3.8-10.6)
[2018-06-10 07:37] LABS: Potassium 4.6 mmol/L (3.5-5.1)
[2018-06-10 07:38] LABS: Anion Gap 9 mmol/L; Blood Urea Nitrogen 16 mg/dL (7-17); Calcium 9.2 mg/dL (8.4-10.2); Carbon Dioxide 20 mmol/L (22-30); Chloride 112 mmol/L (98-107); Glucose 152 mg/dL (74-99); Sodium 141 mmol/L (137-145)
[2018-06-10] MEDS: ASPIRIN 325 MG TAB PO SCH (09:09)
[2018-06-10 11:43] VITALS: BMI 33.0
[2018-06-10 11:50] LABS: Glucose,Whole Blood 183 mg/dL (75-99)
--- NOTE | 2018-06-10 13:37 | P.CNPUL ---
History of Present Illness Consult date: 06/10/18 Reason for consult: dyspnea, hypoxemia, abnormal CXR/CT Chief complaint: Shortness of breath/CHF History of present illness: Pulmonary consult dated 06/10/2018 53-year-old female who looks much older than her stated age, who presents to the emergency room with complaints of shortness of breath and chest pain. The pain is sharp. Some of the pain is reproducible and may represent musculoskeletal chest wall pain. In addition, the shortness of breath seems to be worse when she takes a deep breath. The pain is sharp. It may be pleuritic in nature. She denies trauma to the chest. She may have some underlying COPD from heavy tobacco use. She tells us that she is down to 4 cigarettes a day. The patient was admitted on the . Although her med list. Does not reflect that, her home medications include Symbicort inhaler and a short acting beta agonist may be Ventolin. The patient has a history of angina, and asthma/COPD. She also suffers from bipolar disorder depression and has had a tubal ligation. She continues to smoke but is pared down her smoking to 4 cigarettes a day. Her chest x-ray is unremarkable. There is no evidence of pneumonia or heart failure. She was admitted with a diagnosis of COPD exacerbation but in actuality, I think her issues related to musculoskeletal chest wall pain and more likely pleurisy. There may be a small component of COPD exacerbation. In addition, pulmonary embolism should be ruled out. Review of Systems A 14 point review of system is positive for chest pain. The pain is sharp and worse on deep breathing and consistent with a pleuritic etiology. In addition, some of her pain is musculoskeletal in origin in that is reproducible. She denies cough or phlegm production. Past Medical History Past Medical History: Asthma, Chest Pain / Angina, COPD, Fibromyalgia, GERD/ Reflux Additional Past Medical History / Comment(s): bipolar depression, "insomnia" History of Any Multi-Drug Resistant Organisms: None Reported Past Surgical History: Tubal Ligation Past Anesthesia/Blood Transfusion Reactions: No Reported Reaction Additional Past Anesthesia/Blood Transfusion Reaction / Comment(s): clausterphobia. pt stated she has never has a blood transfusion Smoking Status: Current every day smoker - Past Family History Mother Additional Family Medical History / Comment(s): bipolar depression Father Family Medical History: Cancer, Myocardial Infarction ([place]) Medications and Allergies Home Medications Medication Instructions Recorded Confirmed Type Amitriptyline HCl 25 mg PO HS 06/09/18 06/09/18 History Ranitidine HCl 150 mg PO HS 06/09/18 06/09/18 History Allergies Allergy/AdvReac Type Severity Reaction Status Date / Time No Known Allergies Allergy Verified 12/18/17 16:07 Physical Exam Osteopathic Statement: *. No significant issues noted on an osteopathic structural exam other than those noted in the History and Physical/Consult. Vitals: Vital Signs Temp Pulse Pulse Resp BP BP Pulse Ox 06/10/18 11:30 98.0 F 94 18 122/75 91 L 06/10/18 11:23 80 06/10/18 11:12 80 06/10/18 07:45 98.0 F 81 18 100/59 94 L 06/10/18 03:59 70 17 06/10/18 03:58 97.8 F 70 17 96/52 94 L 06/10/18 03:33 78 16 06/10/18 03:23 76 16 06/09/18 23:47 80 16 06/09/18 23:39 78 82 16 06/09/18 23:36 97.7 F 82 17 114/74 92 L 06/09/18 20:00 98.2 F 89 17 109/51 06/09/18 19:43 81 16 06/09/18 19:32 82 16 97 06/09/18 19:06 97.8 F 92 18 113/79 100 06/09/18 19:04 97.8 F 92 18 113/79 100 06/09/18 18:42 97.8 F 92 18 113/79 100 06/09/18 18:30 75 20 122/76 95 06/09/18 18:00 98/83 06/09/18 17:30 73 14 89/77 91 L 06/09/18 17:00 78 17 108/80 93 L 06/09/18 16:30 86 12 100/72 95 06/09/18 16:00 81 22 107/78 95 06/09/18 15:30 83 8 L 109/91 91 L 06/09/18 15:00 86 20 104/71 95 06/09/18 14:30 80 19 104/71 97 06/09/18 14:18 80 16 97 06/09/18 14:05 97.8 F 92 18 113/79 100 Intake and Output 06/09/18 06/10/18 06/10/18 22:59 06:59 14:59 Intake Total 400 1150 240 Balance 400 1150 240 Intake: Intake, IV Titration 1000 Amount Sodium Chloride 0.9% 1, 1000 000 ml @ 100 mls/hr IV . Q10H [facility] Rx#:[id number] Oral 400 150 240 Other: Voiding Method Toilet Toilet # Voids 2 Weight 93 kg 93 kg No acute distress, oriented 3. No audible wheezing. No smuan respiratory distress. HEENT examination is grossly unremarkable. Mucous membranes are moist. No oral lesions. Neck supple. Full range of motion. No adenopathy thyromegaly or neck vein distention. Cardiovascular examination reveals regular rhythm rate. S1-S2 normal. No S3 or S4. No discernible murmur noted. Lungs reveal mostly clear breath sounds. There may be a hint of some expiratory rhonchi. No wheezes or crackles. Breath sounds equal bilaterally. In addition, some of her chest pain is reproducible. No pleural friction rub heard. Abdomen soft bowel sounds are heard. No masses or tenderness. Extremities are intact. No cyanosis clubbing or edema. Skin is without rash or lesion. Neurologic examination is brief but nonfocal. Results - Laboratory Findings CBC and BMP: 06/10/18 06:30 06/10/18 06:30 PT/INR, D-dimer PT 9.4 sec (9.0-12.0) 06/09/18 14:30 INR 0.9 (<1.2) 06/09/18 14:30 D-Dimer 0.40 mg/L FEU (<0.60) 06/09/18 14:30 Abnormal lab findings: Abnormal Labs 06/09/18 06/09/18 06/09/18 14:30 14:30 20:47 WBC Hct 47.6 H Neutrophils # Lymphocytes # Chloride 110 H Carbon Dioxide Glucose POC Glucose (mg/dL) 156 H Total Creatine Kinase Cholesterol LDL Cholesterol, Calc 06/10/18 06/10/18 06/10/18 02:22 02:22 06:04 WBC Hct Neutrophils # Lymphocytes # Chloride Carbon Dioxide Glucose POC Glucose (mg/dL) 149 H Total Creatine Kinase 28 L Cholesterol 212 H LDL Cholesterol, Calc 155 H 06/10/18 06/10/18 06/10/18 06:30 06:30 11:40 WBC 10.7 H Hct Neutrophils # 10.0 H Lymphocytes # 0.6 L Chloride 112 H Carbon Dioxide 20 L Glucose 152 H POC Glucose (mg/dL) 183 H Total Creatine Kinase Cholesterol LDL Cholesterol, Calc - Diagnostic Findings Chest x-ray: report reviewed, image reviewed (Chest x-ray, labs, and medications are all reviewed.) Assessment and Plan Assessment: Assessment Chest pain, sharp, worse with deep breathing, and likely consistent with pleurisy. In addition, some of the pain is reproducible and likely relates to musculoskeletal chest wall syndrome Rule out mild COPD exacerbation Ongoing tobacco use with nicotine addiction History of angina/chest pain Previous history of tubal ligation History of bipolar disorder History of depression History of ongoing tobacco use with nicotine addiction Plan: Plan dated 06/10/2018 Her medications are reviewed. We can resume her usual breathing medications. I would use some nonsteroid anti-inflammatory drug all all with some steroids for her musculoskeletal chest wall syndrome as well as or pleurisy. Additional recommendations and suggestions are forthcoming. We will continue to follow. Prognosis is guarded. She is counseled about the importance of smoking cessation. Time with Patient: Greater than 30
--- NOTE | 2018-06-10 16:29 | P.HPIM ---
History of Present Illness This is a pleasant 53 years old female with past medical history of asthma, COPD , coronary artery disease, fibromyalgia, GERD, depression, who presents because of chest pain on the right side of 3 weeks duration. Patient patient's have symptoms of upper respiratory infections about 2 weeks ago after that her right- sided chest pain got worse it's on the right side side radiating to the back sometimes is got worse with coughing and change of movement. Patient also complains with mild dyspnea and cough with brown sputum. In the emergency room patient had mild leukocytosis at 10.7. Hemoglobin and platelets were stable. Electrolytes were fine. Creatinine 0.65. Chest x-ray shows no acute cardiopulmonary process Review of Systems CONSTITUTIONAL: No fever, no malaise, no fatigue. HEENT: No recent visual problems or hearing problems. Denied any sore throat. CARDIOVASCULAR: No orthopnea, PND, no palpitations, no syncope. PULMONARY: No shortness of breath, no cough, no hemoptysis. GASTROINTESTINAL: No diarrhea, no nausea, no vomiting, no abdominal pain. Normoactive bowel sounds. NEUROLOGICAL: No headaches, no weakness, no numbness. HEMATOLOGICAL: Denies any bleeding or petechiae. GENITOURINARY: Denies any burning micturition, frequency, or urgency. MUSCULOSKELETAL/RHEUMATOLOGICAL: Denies any joint pain, swelling, or any muscle pain. ENDOCRINE: Denies any polyuria or polydipsia. Past Medical History Past Medical History: Asthma, Chest Pain / Angina, COPD, Fibromyalgia, GERD/ Reflux Additional Past Medical History / Comment(s): bipolar depression, "insomnia" History of Any Multi-Drug Resistant Organisms: None Reported Past Surgical History: Tubal Ligation Past Anesthesia/Blood Transfusion Reactions: No Reported Reaction Additional Past Anesthesia/Blood Transfusion Reaction / Comment(s): clausterphobia. pt stated she has never has a blood transfusion Smoking Status: Current every day smoker - Past Family History Mother Additional Family Medical History / Comment(s): bipolar depression Father Family Medical History: Cancer, Myocardial Infarction ([place]) Medications and Allergies Home Medications Medication Instructions Recorded Confirmed Type Amitriptyline HCl 25 mg PO HS 06/09/18 06/09/18 History Ranitidine HCl 150 mg PO HS 06/09/18 06/09/18 History Allergies Allergy/AdvReac Type Severity Reaction Status Date / Time No Known Allergies Allergy Verified 12/18/17 16:07 Physical Exam Vitals: Vital Signs Temp Pulse Pulse Resp BP BP Pulse Ox 06/10/18 11:30 98.0 F 94 18 122/75 91 L 06/10/18 11:23 80 06/10/18 11:12 80 06/10/18 07:45 98.0 F 81 18 100/59 94 L 06/10/18 03:59 70 17 06/10/18 03:58 97.8 F 70 17 96/52 94 L 06/10/18 03:33 78 16 06/10/18 03:23 76 16 06/09/18 23:47 80 16 06/09/18 23:39 78 82 16 06/09/18 23:36 97.7 F 82 17 114/74 92 L 06/09/18 20:00 98.2 F 89 17 109/51 06/09/18 19:43 81 16 06/09/18 19:32 82 16 97 06/09/18 19:06 97.8 F 92 18 113/79 100 06/09/18 19:04 97.8 F 92 18 113/79 100 06/09/18 18:42 97.8 F 92 18 113/79 100 06/09/18 18:30 75 20 122/76 95 06/09/18 18:00 98/83 06/09/18 17:30 73 14 89/77 91 L 06/09/18 17:00 78 17 108/80 93 L 06/09/18 16:30 86 12 100/72 95 Intake and Output 06/10/18 06/10/18 06/10/18 06:59 14:59 22:59 Intake Total 1150 240 Balance 1150 240 Intake: Intake, IV Titration 1000 Amount Sodium Chloride 0.9% 1, 1000 000 ml @ 100 mls/hr IV . Q10H [facility] Rx#:[id number] Oral 150 240 Other: Voiding Method Toilet # Voids 2 2 Weight 93 kg 93 kg GENERAL: The patient is alert and oriented x3, not in any acute distress. Well developed, well nourished. HEENT: Pupils are round and equally reacting to light. EOMI. No scleral icterus. No conjunctival pallor. Normocephalic, atraumatic. No pharyngeal erythema. No thyromegaly. CARDIOVASCULAR: S1 and S2 present. No murmurs, rubs, or gallops. PULMONARY: Chest is clear to auscultation, no wheezing or crackles. ABDOMEN: Soft, nontender, nondistended, normoactive bowel sounds. No palpable organomegaly. MUSCULOSKELETAL: No joint swelling or deformity. EXTREMITIES: No cyanosis, clubbing, or pedal edema. NEUROLOGICAL: Gross neurological examination did not reveal any focal deficits. SKIN: No rashes. Results CBC & Chem 7: 06/10/18 06:30 06/10/18 06:30 Labs: Abnormal Lab Results - Last 24 Hours (Table) 06/09/18 06/10/18 06/10/18 Range/Units 20:47 02:22 02:22 WBC (3.8-10.6) k/uL Neutrophils # (1.3-7.7) k/uL Lymphocytes # (1.0-4.8) k/uL Chloride (98-107) mmol/L Carbon Dioxide (22-30) mmol/L Glucose (74-99) mg/dL POC Glucose (mg/dL) 156 H (75-99) mg/dL Total Creatine Kinase 28 L (30-135) U/L Cholesterol 212 H (<200) mg/dL LDL Cholesterol, Calc 155 H (0-99) mg/dL 06/10/18 06/10/18 06/10/18 Range/Units 06:04 06:30 06:30 WBC 10.7 H (3.8-10.6) k/uL Neutrophils # 10.0 H (1.3-7.7) k/uL Lymphocytes # 0.6 L (1.0-4.8) k/uL Chloride 112 H (98-107) mmol/L Carbon Dioxide 20 L (22-30) mmol/L Glucose 152 H (74-99) mg/dL POC Glucose (mg/dL) 149 H (75-99) mg/dL Total Creatine Kinase (30-135) U/L Cholesterol (<200) mg/dL LDL Cholesterol, Calc (0-99) mg/dL 06/10/18 Range/Units 11:40 WBC (3.8-10.6) k/uL Neutrophils # (1.3-7.7) k/uL Lymphocytes # (1.0-4.8) k/uL Chloride (98-107) mmol/L Carbon Dioxide (22-30) mmol/L Glucose (74-99) mg/dL POC Glucose (mg/dL) 183 H (75-99) mg/dL Total Creatine Kinase (30-135) U/L Cholesterol (<200) mg/dL LDL Cholesterol, Calc (0-99) mg/dL Assessment and Plan Assessment: Pleuritic chest pain, versus musculoskeletal sore combination Possible COPD in acute exacerbation History of coronary artery disease Hypertension Hyperlipidemia History of depression Plan: This is a pleasant 53 years old female who presents because of pleuritic chest pain and possible COPD. Labs and medication reviews. Continue with steroids, breathing treatments and oxygen Continue with same treatment. Continue symptomatic treatment. Resume home medication. GI and DVT prophylaxis. Pulmonary consultation is appreciated. Continue with antibiotics and pain management. Further recommendations of the clinical course of the patient DVT prophylaxis: Subcutaneous heparin GI prophylaxis: Pepcid Prognosis is guarded
[2018-06-10 16:31] LABS: Glucose,Whole Blood 144 mg/dL (75-99)
[2018-06-10] MEDS: methylPREDNISolone SOD SUCCI 40 MG/ML 1 ML VIAL IV SCH ×2 (17:48→23:51)
[2018-06-10 20:34] LABS: Glucose,Whole Blood 162 mg/dL (75-99)
[2018-06-10] MEDS: SYMBICORT 160-4.5 MCG INHALER INHALATION SCH (21:02)
[2018-06-10] MEDS: AMITRIPTYLINE HCL 25 MG TAB PO SCH (21:39)
[2018-06-10] MEDS: FAMOTIDINE 20 MG TAB PO SCH (21:39)
[2018-06-10] MEDS: DOXYCYCLINE 100 MG in SODIUM CHLORIDE 0.9% 100 ML IVPB SCH (21:39)
[2018-06-10] MEDS: MELATONIN 5 MG TABLET PO SCH (21:39)
[2018-06-10] MEDS: HEPARIN SODIUM,PORCINE 5,000 UNIT/ML 1 ML VIAL SQ SCH (21:40)
[2018-06-11] MEDS: IPRATROPIUM-ALBUTEROL 3 ML NEB INHALATION SCH ×5 (00:21→12:54)
[2018-06-11] MEDS: MORPHINE SULFATE 4 MG/ML SYRINGE IVP PRN ×2 (04:02→08:12)
[2018-06-11 05:58] LABS: Glucose,Whole Blood 168 mg/dL (75-99)
[2018-06-11] MEDS: methylPREDNISolone SOD SUCCI 40 MG/ML 1 ML VIAL IV SCH ×2 (06:44→11:37)
[2018-06-11] MEDS: INSULIN ASPART 100 UNIT/ML 1 ML 10 ML VIAL SQ SCH ×2 (06:44→12:31)
[2018-06-11 07:06] LABS: Basophils % (A) 0 %; Eosinophils % (A) 0 %; HCT 39.4 % (34.0-46.0); HGB 12.7 gm/dL (11.4-16.0); Lymphocytes # (A) 0.9 k/uL (1.0-4.8); Lymphocytes % (A) 5 %; MCHC 32.3 g/dL (31.0-37.0); MCV 92.9 fL (80.0-100.0); Mean Platelet Volume 6.7; Monocytes # (A) 0.5 k/uL (0-1.0); Monocytes % (A) 2 %; Neutrophils # (A) 17.9 k/uL (1.3-7.7); Neutrophils % (A) 93 %; Platelet Count 316 k/uL (150-450); RBC 4.24 m/uL (3.80-5.40); RDW 14.2 % (11.5-15.5); WBC 19.3 k/uL (3.8-10.6)
[2018-06-11 07:24] LABS: Anion Gap 6 mmol/L; Blood Urea Nitrogen 14 mg/dL (7-17); Calcium 8.8 mg/dL (8.4-10.2); Carbon Dioxide 21 mmol/L (22-30); Chloride 113 mmol/L (98-107); Glucose 139 mg/dL (74-99); Potassium 4.7 mmol/L (3.5-5.1); Sodium 140 mmol/L (137-145)
[2018-06-11] MEDS ORDERED: SYMBICORT 160-4.5 MCG INHALER INHALATION ONE (09:00)
[2018-06-11] MEDS ORDERED: IPRATROPIUM-ALBUTEROL 3 ML NEB ONE (09:00)
[2018-06-11] MEDS: SYMBICORT 160-4.5 MCG INHALER INHALATION SCH ×2 (09:04→09:15)
[2018-06-11] MEDS: HEPARIN SODIUM,PORCINE 5,000 UNIT/ML 1 ML VIAL SQ SCH (10:29)
[2018-06-11] MEDS: ASPIRIN 325 MG TAB PO SCH (10:29)
[2018-06-11] MEDS: SODIUM CHLORIDE 0.9% 1,000 ML IV SCH (10:29)
--- NOTE | 2018-06-11 10:38 | P.DS ---
Providers Date of admission: 06/09/18 16:10 Attending physician: Travon Glass MD Consults: 06/09/18 16:56 Consult Physician Routine Consulting Provider: Terell Couch Consult Reason/Comments: asthma Do you want consulting provider notified?: Yes Primary care physician: [facility] Course: Patient is admitted for COPD exacerbation and was closely the chest pain. Patient will be discharged today patient was asked to take nonsteroidal anti- inflammatories for musculoskeletal pain and will be set discharged on systemic steroids with tapering doses for COPD exacerbation. PHYSICAL EXAMINATION: GENERAL: The patient is alert and oriented x3, not in any acute distress. Well developed, well nourished. HEENT: Pupils are round and equally reacting to light. EOMI. No scleral icterus. No conjunctival pallor. Normocephalic, atraumatic. No pharyngeal erythema. No thyromegaly. CARDIOVASCULAR: S1 and S2 present. No murmurs, rubs, or gallops. PULMONARY: Chest is clear to auscultation, no wheezing or crackles. ABDOMEN: Soft, nontender, nondistended, normoactive bowel sounds. No palpable organomegaly. MUSCULOSKELETAL: No joint swelling or deformity. EXTREMITIES: No cyanosis, clubbing, or pedal edema. NEUROLOGICAL: Gross neurological examination did not reveal any focal deficits. SKIN: No rashes. -COPD exacerbation -Musculoskeletal chest pain -Hypertension -Hyperlipidemia -Depression Patient Condition at Discharge: Undetermined Plan - Discharge Summary Discharge Rx Participant: No New Discharge Prescriptions: New Doxycycline Monohydrate [Monodox] 100 mg PO BID 3 Days #6 cap predniSONE 10 mg PO DAILY #30 tab No Action Ranitidine HCl 150 mg PO HS Amitriptyline HCl 25 mg PO HS Discharge Medication List Amitriptyline HCl 25 mg PO HS 06/09/18 [History] Ranitidine HCl 150 mg PO HS 06/09/18 [History] Doxycycline Monohydrate [Monodox] 100 mg PO BID 3 Days #6 cap 06/11/18 [Rx] predniSONE 10 mg PO DAILY #30 tab 06/11/18 [Rx] Follow up Appointment(s)/Referral(s): Britney Mead FNPBC [REFERRING] - 1 Week (Call and make an appointment Tuesday.) Discharge Disposition: HOME SELF-CARE
[2018-06-11 10:52] VITALS: RESP 18
[2018-06-11] MEDS: DOXYCYCLINE 100 MG in SODIUM CHLORIDE 0.9% 100 ML IVPB SCH (11:37)
[2018-06-11 12:03] LABS: Glucose,Whole Blood 138 mg/dL (75-99)
--- NOTE | 2018-06-11 12:08 | P.PN ---
Subjective Progress Note Date: 06/11/18 Principal diagnosis: Pleuritic chest pain, musculoskeletal chest wall pain Progress note dated 06/11/2018 This is a 53-year-old female who presents to the emergency department with complaints of sharp chest pain which is worsened by deep breathing. The pain clearly has a pleuritic nature to it. In addition, the pain in the anterior chest is somewhat reproducible. When I saw her yesterday in consultation, I felt that her primary problem was primarily pleurisy and/or musculoskeletal chest wall syndrome. She denies any trauma to the chest. She also may have some underlying COPD from heavy tobacco use. She apparently may be discharged today. That up to the hospital service. In addition, the patient has a history of angina, bipolar disorder, depression, and tubal ligation. The patient is feeling much better today with nonsteroid anti-inflammatory medications as well as steroids. Objective - Vital Signs Vital signs: Vital Signs Temp 98.3 F 06/11/18 08:00 Pulse 80 06/11/18 09:19 Resp 18 06/11/18 08:00 BP 101/60 06/11/18 08:00 Pulse Ox 94 L 06/11/18 08:00 Intake & Output 06/10/18 06/11/18 06/11/18 18:59 06:59 18:59 Intake Total 462 1900 180 Output Total 2 Balance 462 1898 180 Weight 93 kg 95.2 kg Intake: Intake, IV Titration 1200 Amount Sodium Chloride 0.9% 1, 1200 000 ml @ 100 mls/hr IV . Q10H [facility] Rx#:[id number] Oral 462 700 180 Output: Urine 2 Other: Voiding Method Toilet # Voids 2 1 - Exam No acute distress, oriented 3. No audible wheezing. No suman respiratory distress. Not requiring any oxygen therapy. HEENT examination is grossly unremarkable. Mucous membranes are moist. No oral lesions. Neck supple. Full range of motion. No adenopathy thyromegaly or neck vein distention. Cardiovascular examination reveals regular rhythm rate. S1-S2 normal. No S3 or S4. No discernible murmur noted. Lungs reveal mostly clear breath sounds. No significant wheezes rhonchi or crackles appreciated. Breath sounds equal bilaterally. Mild prolongation on forced maneuver. No pleural friction rub noted. Mild tenderness noted on palpation to the anterior chest. Abdomen soft bowel sounds are heard. No masses or tenderness. Extremities are intact. No cyanosis clubbing or edema. Skin is without rash or lesion. Neurologic examination is brief but nonfocal. - Labs CBC & Chem 7: 06/11/18 06:38 06/11/18 06:38 Labs: Abnormal Lab Results - Last 24 Hours (Table) 06/10/18 06/10/18 06/11/18 Range/Units 16:25 20:33 05:30 WBC (3.8-10.6) k/uL Neutrophils # (1.3-7.7) k/uL Lymphocytes # (1.0-4.8) k/uL Chloride (98-107) mmol/L Carbon Dioxide (22-30) mmol/L Glucose (74-99) mg/dL POC Glucose (mg/dL) 144 H 162 H 168 H (75-99) mg/dL 06/11/18 06/11/18 Range/Units 06:38 06:38 WBC 19.3 H (3.8-10.6) k/uL Neutrophils # 17.9 H (1.3-7.7) k/uL Lymphocytes # 0.9 L (1.0-4.8) k/uL Chloride 113 H (98-107) mmol/L Carbon Dioxide 21 L (22-30) mmol/L Glucose 139 H (74-99) mg/dL POC Glucose (mg/dL) (75-99) mg/dL Assessment and Plan Assessment: Assessment Chest pain, sharp, worse with deep breathing, and likely consistent with pleurisy. In addition, some of the pain is reproducible and likely relates to musculoskeletal chest wall syndrome Rule out mild COPD exacerbation Ongoing tobacco use with nicotine addiction History of angina/chest pain Previous history of tubal ligation History of bipolar disorder History of depression History of ongoing tobacco use with nicotine addiction Plan: Plan dated 06/10/2018 Her medications are reviewed. We can resume her usual breathing medications. I would use some nonsteroid anti-inflammatory drug all all with some steroids for her musculoskeletal chest wall syndrome as well as or pleurisy. Additional recommendations and suggestions are forthcoming. We will continue to follow. Prognosis is guarded. She is counseled about the importance of smoking cessation. Plan dated 06/11/2018 The patient's medications are reviewed. Lab data is reviewed. The patient can resume her usual breathing medications as mentioned yesterday. I recommended both steroids and nonsteroid anti-inflammatory drugs for it appears to be musculoskeletal chest wall syndrome as well as pleurisy. She's counseled about the importance of smoking cessation. I told her I be happy to see her in the office to better evaluate her chronic obstructive pulmonary disease. Her prognosis is guarded. Laboratory data from today includes a white count of 19.3 , hemoglobin 12.7, hematocrit 39.4 and a normal platelet count. Sodium and potassium were normal. Chlorides was 113 with a CO2 of 21. Anion gap was normal as was renal function as reflected normal BUN and creatinine levels. Chest x-ray from June 09 shows no acute cardiopulmonary disease. Time with Patient: Less than 30
[2018-06-11 14:22] VITALS: BP 133/82; PULSE 88; TEMP 98.4
== END 2018-06-11 15:33 | disposition home or self-care (01) ==
LOC: EC 14:04 → 3SCARD 16:10
PROVIDERS: ADMIT Internal Medicine; ATTEND Internal Medicine
DX: J44.1 Chronic obstructive pulmonary disease with (acute) exacerbation (principal); R07.89 Other chest pain; E78.5 Hyperlipidemia, unspecified; F17.210 Nicotine dependence, cigarettes, uncomplicated; I11.0 Hypertensive heart disease with heart failure; I25.10 Atherosclerotic heart disease of native coronary artery without angina pectoris; I50.9 Heart failure, unspecified; D72.829 Elevated white blood cell count, unspecified; J45.901 Unspecified asthma with (acute) exacerbation; F31.9 Bipolar disorder, unspecified; K21.9 Gastro-esophageal reflux disease without esophagitis; M79.7 Fibromyalgia; R09.02 Hypoxemia; Z98.51 Tubal ligation status; Z82.49 Family history of ischemic heart disease and other diseases of the circulatory system; Z79.899 Other long term (current) drug therapy
CPT/HCPCS: 96376 ×3; 96361 ×3; 96374; 96375; 99285; 36415; 94640 ×6; 94760 ×2; 93005; 85379; 83880; 80061; 80053; 80048 ×2; 82550 ×2; 82553 ×2; 83690; 83735; 84484 ×2; 85025 ×3; 85610; 85730; 71046; G0378 ×3; J2270 ×3; J1644 ×2; J2920 ×2; J2930 ×2; J1885

== ENCOUNTER 2019-08-27 16:50 | Emergency (ER) | payer OTHER ==
[2019-08-27 16:58] VITALS: TEMP 98.2
[2019-08-27] MEDS ORDERED: KETOROLAC 30 MG/ML 1 ML VIAL IM STA (17:12)
--- NOTE | 2019-08-27 17:18 | ED ---
Fall HPI - General Chief Complaint: Fall Stated Complaint: lt knee injury Time Seen by Provider: 08/27/19 16:59 Source: patient Mode of arrival: wheelchair - History of Present Illness Initial Comments: 54-year-old female patient presents to the emergency department today for evaluation of multiple injuries after experiencing a fall down approximately 4 steps. Patient states injury occurred around 1:30 this afternoon. States that she is having pain to the right elbow, left knee, and right foot. States the left knee pain is the worst. She states she is unable to bend it due to severe pain with movement. States that she is also having difficulty ambulating due to the pain. She denies hitting her head or losing consciousness during the injury. Denies any neck or back pain. She denies use of anticoagulant medications. Denies numbness or tingling to the extremities. Patient denies any headache, chest pain, shortness of breath, dizziness, weakness, abdominal pain, nausea, vomiting, or difficulties with bowel movements or urination. - Related Data Home Medications Medication Instructions Recorded Confirmed Amitriptyline HCl 25 mg PO HS 06/09/18 06/09/18 Ranitidine HCl 150 mg PO HS 06/09/18 06/09/18 Previous Rx's Medication Instructions Recorded Doxycycline Monohydrate [Monodox] 100 mg PO BID 3 Days #6 cap 06/11/18 predniSONE 10 mg PO DAILY #30 tab 06/11/18 Ibuprofen [Motrin] 600 mg PO Q8HR PRN #30 tab 08/27/19 Allergies Allergy/AdvReac Type Severity Reaction Status Date / Time No Known Allergies Allergy Verified 08/27/19 16:55 Review of Systems ROS Statement: Those systems with pertinent positive or pertinent negative responses have been documented in the HPI. ROS Other: All systems not noted in ROS Statement are negative. Past Medical History Past Medical History: Asthma, Chest Pain / Angina, COPD, Fibromyalgia, GERD/Reflux Additional Past Medical History / Comment(s): bipolar depression, "insomnia" History of Any Multi-Drug Resistant Organisms: None Reported Past Surgical History: Tubal Ligation Past Anesthesia/Blood Transfusion Reactions: No Reported Reaction Additional Past Anesthesia/Blood Transfusion Reaction / Comment(s): clausterphobia. pt stated she has never has a blood transfusion Past Psychological History: Bipolar, Depression Smoking Status: Current every day smoker Past Alcohol Use History: None Reported Past Drug Use History: None Reported - Past Family History Mother Additional Family Medical History / Comment(s): bipolar depression Father Family Medical History: Cancer, Myocardial Infarction ([place]) General Exam Limitations: no limitations General appearance: alert, in no apparent distress, other (This is a well- developed, well-nourished adult female patient in no acute distress. Vital signs upon presentation are temperature 98.2F. Pulse 78, respiration 16, blood pressure 111/74, pulse ox 94% on room air.) Eye exam: Present: normal appearance, PERRL, EOMI. Absent: scleral icterus, conjunctival injection, periorbital swelling ENT exam: Present: normal exam, normal oropharynx, mucous membranes moist Neck exam: Present: normal inspection, full ROM, other (Nontender, no step-off, no deformity to firm midline palpation of the posterior cervical spine. Full range of motion without pain or limitation.). Absent: tenderness, meningismus, lymphadenopathy Respiratory exam: Present: normal lung sounds bilaterally. Absent: respiratory distress, wheezes, rales, rhonchi, stridor Cardiovascular Exam: Present: regular rate, normal rhythm, normal heart sounds. Absent: systolic murmur, diastolic murmur, rubs, gallop, clicks GI/Abdominal exam: Present: soft, normal bowel sounds. Absent: distended, tenderness, guarding, rebound, rigid Extremities exam: Present: full ROM, tenderness (Left lateral knee. Right proximal fifth metatarsal.), normal capillary refill, other (There is abrasion noted to the right elbow. No soft tissue swelling or ecchymosis. Skin to the upper 70s is pink, warm, dry. Cap refills less than 3 seconds. Radial pulses 2+ and equal bilaterally. Patient has tenderness over the left lateral knee. No surface trauma noted. She does exhibit full range of motion and increased pain with valgus and varus maneuvers. Skin to the left lower extremities pink, warm, dry. Cap refills less than 3 seconds. Pedal and posttibial pulses are 2+ and equal bilaterally. There is also soft tissue swelling and ecchymosis noted to the right dorsal foot over the fifth metatarsal.). Absent: normal inspection, pedal edema, joint swelling, calf tenderness Back exam: Present: normal inspection, other (Nontender, no step-off, no deformity to firm midline palpation of the thoracic and lumbar vertebrae. Full range of motion without pain or limitation.). Absent: vertebral tenderness Neurological exam: Present: alert, oriented X3, CN II-XII intact Psychiatric exam: Present: normal affect, normal mood Skin exam: Present: warm, dry, intact, normal color. Absent: rash Course Vital Signs 08/27/19 08/27/19 08/27/19 16:53 16:57 17:55 Temperature 98.2 F Pulse Rate 78 73 Respiratory 16 20 20 Rate Blood Pressure 111/74 135/80 O2 Sat by Pulse 94 L 96 Oximetry Medical Decision Making - Medical Decision Making 54-year-old female patient presents to the emergency department today for evaluation of right elbow, left knee, and right foot pain after experiencing a fall down 4 steps. Physical examination did reveal soft tissue swelling and ecchymosis over the dorsal aspect of the right foot. There is also some tenderness over the left lateral knee. X-rays were obtained and showed no acute fractures or dislocations. We will apply Jose wrap to the left knee and right foot for possible sprain. She is instructed to rest, ice, elevate the extremities. She is instructed to follow up with her primary care physician for recheck in 1-2 days. Return parameters were discussed in detail. She verbalizes understanding and agrees with this plan. - Radiology Data Radiology results: report reviewed, image reviewed Disposition Clinical Impression: Multiple contusions, Foot sprain, Left knee sprain Disposition: HOME SELF-CARE Condition: Good Instructions (If sedation given, give patient instructions): Contusion in Adults (ED), Fall Prevention (ED) Additional Instructions: Rest, ice, elevate the injured extremities. Use Jose wrap for comfort and support. If pain symptoms persist N7 to 10 days have repeat x-rays performed. Optic primary care physician for recheck in 1-2 days. Return to the emergency department immediately for any new, worsening, or concerning symptoms. Prescriptions: Ibuprofen [Motrin] 600 mg PO Q8HR PRN #30 tab PRN Reason: Pain Is patient prescribed a controlled substance at d/c from ED?: No Referrals: Hawk Masterson Jr, DO [Primary Care Provider] - 1-2 days Time of Disposition: 18:08
[2019-08-27 17:50] VITALS: RESP 20
--- NOTE | 2019-08-27 17:51 | XR ---
EXAMINATION TYPE: XR elbow complete RT DATE OF EXAM: 08/27/2019 COMPARISON: NONE HISTORY: Elbow pain TECHNIQUE: 3 views FINDINGS: I see no fracture nor dislocation. Joint spaces are normal. There is no sign of elbow joint effusion. IMPRESSION: Negative right elbow exam.
--- NOTE | 2019-08-27 17:53 | XR ---
EXAMINATION TYPE: XR foot complete RT DATE OF EXAM: 08/27/2019 COMPARISON: NONE HISTORY: Foot pain TECHNIQUE: 3 views FINDINGS: Metatarsals are intact. I see no fracture nor dislocation. Joint spaces are fairly normal. IMPRESSION: Negative right foot exam.
--- NOTE | 2019-08-27 17:55 | XR ---
EXAMINATION TYPE: XR knee complete LT DATE OF EXAM: 08/27/2019 COMPARISON: NONE HISTORY: Knee pain TECHNIQUE: 3 views FINDINGS: I see no fracture nor dislocation. Joint spaces are normal. There is no sign of knee joint effusion. IMPRESSION: Negative left knee exam.
[2019-08-27 17:56] VITALS: BP 135/80; PULSE 73
== END 2019-08-27 18:39 | disposition home or self-care (01) ==
LOC: EC 16:50
DX: S83.92XA Sprain of unspecified site of left knee, initial encounter (principal); S93.602A Unspecified sprain of left foot, initial encounter; K21.9 Gastro-esophageal reflux disease without esophagitis; F17.200 Nicotine dependence, unspecified, uncomplicated; Z79.899 Other long term (current) drug therapy; W10.9XXA Fall (on) (from) unspecified stairs and steps, initial encounter
CPT/HCPCS: 73080; 73562; 73630; 99283; 96372; J1885

== ENCOUNTER 2020-01-24 14:05 | Observation (INO) | payer OTHER ==
[2020-01-24] MEDS ORDERED: SODIUM CHLORIDE 0.9% 1,000 ML IV STA ×2 (14:17)
--- NOTE | 2020-01-24 14:28 | ED ---
General Adult HPI - General Chief complaint: Seizure Stated complaint: Seizure Time Seen by Provider: 01/24/20 14:15 Source: RN notes reviewed, old records reviewed - History of Present Illness Initial comments: Patient is a 54-year-old female who presents emergency Department today with initial chief complaint of dizziness and feeling weak for the past 2 days. 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 She was immediately wheeled back to the exam room and proceeded to have a 2 minute tonic-clonic seizure. She did not fall out of the wheelchair or hit her head. When Patient came out of the seizure she is postictal. reports that she has been having frequent seizures over the past 3 months and has had a total of 5. She's not had further evaluation for this. Her believes that her seizures are related to emotional stressors at home. They do state that initially was bringing the Patient into the emergency department was significant dizziness and weakness after doing a 2 mile bike ride 2 days ago. She's been laying on the couch since then, not eating or drinking much and has been was concerned she is dehydrated. does relate that she's had a history of seizures when she was younger bu t then she "grew out of them". She had not had a significant seizure history up until the past 3 months again. She denies drug or alcohol use. - Related Data Home Medications Medication Instructions Recorded Confirmed Amitriptyline HCl 25 mg PO HS 06/09/18 06/09/18 Ranitidine HCl 150 mg PO HS 06/09/18 06/09/18 Previous Rx's Medication Instructions Recorded Doxycycline Monohydrate [Monodox] 100 mg PO BID 3 Days #6 cap 06/11/18 predniSONE 10 mg PO DAILY #30 tab 06/11/18 Ibuprofen [Motrin] 600 mg PO Q8HR PRN #30 tab 08/27/19 Allergies Allergy/AdvReac Type Severity Reaction Status Date / Time No Known Allergies Allergy Verified 01/24/20 15:07 Review of Systems ROS Statement: Those systems with pertinent positive or pertinent negative responses have been documented in the HPI. ROS Other: All systems not noted in ROS Statement are negative. Past Medical History Past Medical History: Asthma, Chest Pain / Angina, COPD, Fibromyalgia, GERD/Reflux Additional Past Medical History / Comment(s): bipolar depression, "insomnia" History of Any Multi-Drug Resistant Organisms: None Reported Past Surgical History: Tubal Ligation Past Anesthesia/Blood Transfusion Reactions: No Reported Reaction Additional Past Anesthesia/Blood Transfusion Reaction / Comment(s): clausterphobia. pt stated she has never has a blood transfusion Past Psychological History: Bipolar, Depression Smoking Status: Current every day smoker Past Alcohol Use History: None Reported Past Drug Use History: None Reported - Past Family History Mother Additional Family Medical History / Comment(s): bipolar depression Father Family Medical History: Cancer, Myocardial Infarction ([place]) General Exam - General Exam Comments Initial Comments: 54-year-old female. Alert and oriented General appearance: alert, in no apparent distress Head exam: Present: atraumatic, normocephalic, normal inspection Eye exam: Present: normal appearance, PERRL, EOMI. Absent: scleral icterus, conjunctival injection, periorbital swelling ENT exam: Present: normal exam, mucous membranes moist Neck exam: Present: normal inspection. Absent: tenderness, meningismus, lymphadenopathy Respiratory exam: Present: normal lung sounds bilaterally. Absent: respiratory distress, wheezes, rales, rhonchi, stridor Cardiovascular Exam: Present: regular rate, normal rhythm, normal heart sounds. Absent: systolic murmur, diastolic murmur, rubs, gallop, clicks GI/Abdominal exam: Present: soft, normal bowel sounds. Absent: distended, tenderness, guarding, rebound, rigid Extremities exam: Present: normal inspection, full ROM, normal capillary refill. Absent: tenderness, pedal edema, joint swelling, calf tenderness Back exam: Present: normal inspection Neurological exam: Present: alert Psychiatric exam: Present: normal affect, normal mood Skin exam: Present: warm, dry, intact, normal color. Absent: rash Course Vital Signs 01/24/20 01/24/20 01/24/20 14:10 14:30 15:00 Temperature 98.8 F Pulse Rate 79 Respiratory 18 18 Rate Blood Pressure 138/120 138/120 130/85 O2 Sat by Pulse 98 99 97 Oximetry 01/24/20 01/24/20 01/24/20 15:30 16:00 16:30 Temperature Pulse Rate Respiratory 18 18 18 Rate Blood Pressure 125/88 118/81 122/82 O2 Sat by Pulse 95 97 95 Oximetry 01/24/20 17:30 Temperature Pulse Rate 80 Respiratory 18 Rate Blood Pressure 123/86 O2 Sat by Pulse 95 Oximetry Medical Decision Making - Medical Decision Making 54-year-old female presents emergency department today with complaints of a seizure as well as generalized weakness and not feeling well for the past 2 days. Patient has had 5 seizures in the past 3 months and no workup. She does have a previous history of seizures when she was younger. She does not see a neurologist. Patient had a 2 minute tonoclonic seizure upon arrival. She was initially postictal but is now becoming more arousable. Blood work was reviewed and unremarkable. Patient's CT of the brain was reviewed and did show some abnormal concern for on asymmetric flow with the venous sinuses. However computed tomography scan with contrast was completed with an unremarkable study. Patient's case was discussed with Dr. Harrison who discussed the case with Dr. Almendarez has not. We'll consult neurology to these frequent seizures. Patient is agreeable to treatment plan. - Lab Data Result diagrams: 01/24/20 14:30 01/24/20 14:30 Lab Results 01/24/20 01/24/20 01/24/20 Range/Units 14:30 14:30 14:30 WBC 6.9 (3.8-10.6) k/uL RBC 5.34 (3.80-5.40) m/uL Hgb 16.1 H (11.4-16.0) gm/dL Hct 49.4 H (34.0-46.0) % MCV 92.6 (80.0-100.0) fL MCH 30.3 (25.0-35.0) pg MCHC 32.7 (31.0-37.0) g/dL RDW 13.9 (11.5-15.5) % Plt Count 370 (150-450) k/uL Neutrophils % 65 % Lymphocytes % 26 % Monocytes % 4 % Eosinophils % 2 % Basophils % 1 % Neutrophils # 4.5 (1.3-7.7) k/uL Lymphocytes # 1.8 (1.0-4.8) k/uL Monocytes # 0.3 (0-1.0) k/uL Eosinophils # 0.1 (0-0.7) k/uL Basophils # 0.1 (0-0.2) k/uL PT 9.5 (9.0-12.0) sec INR 0.9 (<1.2) APTT 23.6 (22.0-30.0) sec Sodium 141 (137-145) mmol/L Potassium 3.7 (3.5-5.1) mmol/L Chloride 105 (98-107) mmol/L Carbon Dioxide 24 (22-30) mmol/L Anion Gap 12 mmol/L BUN 12 (7-17) mg/dL Creatinine 0.72 (0.52-1.04) mg/dL Est GFR (CKD-EPI)AfAm >90 (>60 ml/min/1.73 sqM) Est GFR (CKD-EPI)NonAf >90 (>60 ml/min/1.73 sqM) Glucose 112 H (74-99) mg/dL Calcium 10.2 (8.4-10.2) mg/dL Magnesium 1.9 (1.6-2.3) mg/dL Total Bilirubin 0.4 (0.2-1.3) mg/dL AST 17 (14-36) U/L ALT 13 (4-34) U/L Alkaline Phosphatase 91 (38-126) U/L Troponin I (0.000-0.034) ng/mL Total Protein 7.6 (6.3-8.2) g/dL Albumin 4.6 (3.5-5.0) g/dL Salicylates <1.0 mg/dL Acetaminophen <10.0 ug/mL [place] <0.2 mmol/L Serum Alcohol <10 mg/dL 01/24/20 Range/Units 14:30 WBC (3.8-10.6) k/uL RBC (3.80-5.40) m/uL Hgb (11.4-16.0) gm/dL Hct (34.0-46.0) % MCV (80.0-100.0) fL MCH (25.0-35.0) pg MCHC (31.0-37.0) g/dL RDW (11.5-15.5) % Plt Count (150-450) k/uL Neutrophils % % Lymphocytes % % Monocytes % % Eosinophils % % Basophils % % Neutrophils # (1.3-7.7) k/uL Lymphocytes # (1.0-4.8) k/uL Monocytes # (0-1.0) k/uL Eosinophils # (0-0.7) k/uL Basophils # (0-0.2) k/uL PT (9.0-12.0) sec INR (<1.2) APTT (22.0-30.0) sec Sodium (137-145) mmol/L Potassium (3.5-5.1) mmol/L Chloride (98-107) mmol/L Carbon Dioxide (22-30) mmol/L Anion Gap mmol/L BUN (7-17) mg/dL Creatinine (0.52-1.04) mg/dL Est GFR (CKD-EPI)AfAm (>60 ml/min/1.73 sqM) Est GFR (CKD-EPI)NonAf (>60 ml/min/1.73 sqM) Glucose (74-99) mg/dL Calcium (8.4-10.2) mg/dL Magnesium (1.6-2.3) mg/dL Total Bilirubin (0.2-1.3) mg/dL AST (14-36) U/L ALT (4-34) U/L Alkaline Phosphatase (38-126) U/L Troponin I <0.012 (0.000-0.034) ng/mL Total Protein (6.3-8.2) g/dL Albumin (3.5-5.0) g/dL Salicylates mg/dL Acetaminophen ug/mL [place] mmol/L Serum Alcohol mg/dL - Radiology Data Radiology results: report reviewed EKG performed at 15 454 shows normal sinus rhythm and normal EKG. Ventricular rate of 74 bpm. Parents was 162 ms. QRS duration is 84 ms. QT QTc is 400/[address] of the brain with contrast was reviewed and unremarkable study. CT of the brain without shows no definite acute hemorrhage or mass effect however internal venous sinuses appear somewhat tense. Likely related to asymmetric flow. Postcontrast CT of the brain is recommended for further assessment. CXR shows no acute Cardiopulmonary process. Disposition Clinical Impression: Seizure Disposition: ADMITTED IP TO THIS HOSP Condition: Stable Is patient prescribed a controlled substance at d/c from ED?: No Referrals: Pearl Machuca MD [Primary Care Provider] - 1-2 days Time of Disposition: 17:49
[2020-01-24 14:55] LABS: Basophils # (A) 0.1 k/uL (0-0.2); Basophils % (A) 1 %; Eosinophils # (A) 0.1 k/uL (0-0.7); Eosinophils % (A) 2 %; HCT 49.4 % (34.0-46.0); HGB 16.1 gm/dL (11.4-16.0); Lymphocytes # (A) 1.8 k/uL (1.0-4.8); Lymphocytes % (A) 26 %; MCH 30.3 pg (25.0-35.0); MCHC 32.7 g/dL (31.0-37.0); MCV 92.6 fL (80.0-100.0); Mean Platelet Volume 6.5; Monocytes # (A) 0.3 k/uL (0-1.0); Monocytes % (A) 4 %; Neutrophils # (A) 4.5 k/uL (1.3-7.7); Neutrophils % (A) 65 %; Platelet Count 370 k/uL (150-450); RBC 5.34 m/uL (3.80-5.40); RDW 13.9 % (11.5-15.5); WBC 6.9 k/uL (3.8-10.6)
[2020-01-24 15:06] LABS: ALT 13 U/L (4-34); AST 17 U/L (14-36); Acetaminophen <10.0 ug/mL; African American GFR (CKD) >90 (>60 ml/min/1.73 sqM); Albumin 4.6 g/dL (3.5-5.0); Alcohol <10 mg/dL; Alkaline Phosphatase 91 U/L (38-126); Anion Gap 12 mmol/L; Blood Urea Nitrogen 12 mg/dL (7-17); Calcium 10.2 mg/dL (8.4-10.2); Carbon Dioxide 24 mmol/L (22-30); Chloride 105 mmol/L (98-107); Glucose 112 mg/dL (74-99); Lithium <0.2 mmol/L; Magnesium 1.9 mg/dL (1.6-2.3); Non-African American GFR(CKD) >90 (>60 ml/min/1.73 sqM); Potassium 3.7 mmol/L (3.5-5.1); Salicylate <1.0 mg/dL; Sodium 141 mmol/L (137-145); Total Bilirubin 0.4 mg/dL (0.2-1.3); Total Protein 7.6 g/dL (6.3-8.2)
[2020-01-24 15:11] LABS: INR 0.9 (<1.2); Partial Thromboplastin Time 23.6 sec (22.0-30.0); Prothrombin Time 9.5 sec (9.0-12.0)
--- NOTE | 2020-01-24 15:51 | XR ---
EXAMINATION TYPE: XR chest 2V DATE OF EXAM: 01/24/2020 COMPARISON: 06/09/2018 HISTORY: Chest pain TECHNIQUE: Frontal and lateral views of the chest are obtained. FINDINGS: There is no focal air space opacity, pleural effusion, or pneumothorax seen. The cardiac silhouette size is upper limits of normal size. The osseous structures are intact. IMPRESSION: No acute cardiopulmonary process.
--- NOTE | 2020-01-24 15:56 | CT ---
EXAMINATION TYPE: CT brain wo con DATE OF EXAM: 01/24/2020 COMPARISON: None HISTORY: Seizure activity. CT DLP: 1169.4 mGycm Automated exposure control for dose reduction was used. FINDINGS: There is no midline shift or mass effect. Calvarium is intact. No mass effect. No midline shift. No a cute intracranial hemorrhage. Ventricular system is compatible with the patient's age. There is sligh t asymmetry the dural venous sinuses. Postcontrast CT is recommended. IMPRESSION: 1. No definite acute hemorrhage or mass effect. However, the dural venous sinuses appear somewhat den se. This most likely related to asymmetric flow. Post contrast CT of the brain is recommended for fur ther assessment.
[2020-01-24] MEDS ORDERED: RX INFO: IV CONTRAST WAS GIVEN 1 EACH MISC MISCELLANE PRN (16:41)
--- NOTE | 2020-01-24 17:11 | CT ---
EXAMINATION TYPE: CT brain w con DATE OF EXAM: 01/24/2020 COMPARISON: CT brain earlier today. HISTORY: Abnormal CT. CT DLP: 1143.4 mGycm. Automated Exposure Control for Dose Reduction was Utilized. TECHNIQUE: CT scan of the head is performed with IV Contrast, patient injected with 100 mL of Isovu e 300. FINDINGS: Postcontrast images show no suspicious enhancing mass. Draining dural venous sinuses appear patent. The ventricles and sulci are within normal limits in size. [place]-white matter differentiation is preserved. The globes are intact and the visualized sinuses are clear. IMPRESSION: Unremarkable study.
[2020-01-24] MEDS ORDERED: ONDANSETRON 4 MG/2 ML VIAL IVP PRN (17:50)
[2020-01-24] MEDS ORDERED: NALOXONE 0.4 MG/ML 1 ML VIAL IV PRN (17:50)
[2020-01-24] MEDS ORDERED: IBUPROFEN 400 MG TAB PO PRN (17:50)
[2020-01-24] MEDS ORDERED: MORPHINE SULFATE 4 MG/ML SYRINGE IV PRN (17:50)
[2020-01-24] MEDS ORDERED: ACETAMINOPHEN TAB 325 MG TAB PO PRN (17:50)
[2020-01-24] MEDS ORDERED: LORazepam 2 MG/ML INJ IV PRN (19:05)
--- NOTE | 2020-01-24 19:16 | P.HPIM ---
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 Patient has a two-minute tonic-clonic activity family is not available at this time. This history was up and from the ER physician dictation. Patient is unable to provide any good history to me patient is having generalized weakness throughout the day lately. Patient apparently was having frequent seizures or lasts to 3 months. Patient didn't have any bowel or bladder incontinence tongue biting. Patient denied any fever chills denied any headache denied any focal weakness but does have significant generalized weakness. Patient denied any photophobia nausea vomiting. No signs or symptoms of sepsis. Patient was born in here basically for not eating well lately and has been weak lately has for the . Patient a CAT scan of the head which did not show any cerebral aneurysms no significant abnormality was appreciated. She had a seizure disorder as a kid but she grew out of it and never had any seizures after that for a long time Review of Systems Negative for for those mentioned above. Past Medical History Past Medical History: Asthma, Chest Pain / Angina, COPD, Fibromyalgia, GERD/Reflux Additional Past Medical History / Comment(s): bipolar depression, "insomnia" History of Any Multi-Drug Resistant Organisms: None Reported Past Surgical History: Tubal Ligation Past Anesthesia/Blood Transfusion Reactions: No Reported Reaction Additional Past Anesthesia/Blood Transfusion Reaction / Comment(s): clausterphobia. pt stated she has never has a blood transfusion Past Psychological History: Bipolar, Depression Smoking Status: Current every day smoker Past Alcohol Use History: None Reported Past Drug Use History: None Reported - Past Family History Mother Additional Family Medical History / Comment(s): bipolar depression Father Family Medical History: Cancer, Myocardial Infarction ([place]) Medications and Allergies Home Medications Medication Instructions Recorded Confirmed Type Amitriptyline HCl 25 mg PO HS 06/09/18 06/09/18 History Ranitidine HCl 150 mg PO HS 06/09/18 06/09/18 History Doxycycline Monohydrate [Monodox] 100 mg PO BID 3 Days #6 cap 06/11/18 Rx predniSONE 10 mg PO DAILY #30 tab 06/11/18 Rx Ibuprofen [Motrin] 600 mg PO Q8HR PRN #30 tab 08/27/19 Rx Allergies Allergy/AdvReac Type Severity Reaction Status Date / Time No Known Allergies Allergy Verified 01/24/20 15:07 Physical Exam Vitals: Vital Signs Temp Pulse Resp BP Pulse Ox 01/24/20 18:30 98.0 F 71 18 105/63 97 01/24/20 18:00 76 18 118/78 97 01/24/20 17:30 80 18 123/86 95 01/24/20 16:30 18 122/82 95 01/24/20 16:00 18 118/81 97 01/24/20 15:30 18 125/88 95 01/24/20 15:00 18 130/85 97 01/24/20 14:30 98.8 F 79 18 138/120 99 01/24/20 14:10 138/120 98 Intake and Output 01/24/20 01/24/20 01/24/20 06:59 14:59 22:59 Other: Weight 94.347 kg PHYSICAL EXAMINATION: GENERAL: The patient is alert and oriented x3, not in any acute distress. Well developed, well nourished. HEENT: Pupils are round and equally reacting to light. EOMI. No scleral icterus. No conjunctival pallor. Normocephalic, atraumatic. No pharyngeal erythema. No thyromegaly. CARDIOVASCULAR: S1 and S2 present. No murmurs, rubs, or gallops. PULMONARY: Chest is clear to auscultation, no wheezing or crackles. ABDOMEN: Soft, nontender, nondistended, normoactive bowel sounds. No palpable organomegaly. MUSCULOSKELETAL: No joint swelling or deformity. EXTREMITIES: No cyanosis, clubbing, or pedal edema. NEUROLOGICAL: Significant generalized weakness, no focal weakness was appreciated SKIN: No rashes. Results CBC & Chem 7: 01/24/20 14:30 01/24/20 14:30 Labs: Abnormal Lab Results - Last 24 Hours (Table) 01/24/20 01/24/20 Range/Units 14:30 14:30 Hgb 16.1 H (11.4-16.0) gm/dL Hct 49.4 H (34.0-46.0) % Glucose 112 H (74-99) mg/dL Assessment and Plan Plan: -New-onset seizures: Patient will need to be evaluated for second because this will obtain an MRI with contrast, EEG neurology consultation. Seizure precautions as needed Ativan for seizures -Generalized weakness etiology is not clear may be subclinical seizures . He is which will be obtained -Asthma without any acute exacerbation -Fibromyalgia Gastroesophageal reflux disease -nicotine abuse: Counseling was provided Due to prophylaxis with the Lovenox and the GI prophylaxis with Protonix
[2020-01-24 20:29] LABS: Appearance,Urine Clear (Clear); Bilirubin,Urine Negative (Negative); Blood,Urine Negative (Negative); Color,Urine Yellow; Glucose,Urine (UA) Negative (Negative); Ketones,Urine 1+ (Negative); Leukocyte Esterase,Urine Negative (Negative); Nitrite,Urine Negative (Negative); PH, Urine 7.5 (5.0-8.0); Protein,Urine Trace (Negative); Urobilinogen,Urine <2.0 mg/dL (<2.0)
[2020-01-24 20:40] LABS: Amphetamine Screen,Urine Not Detected (NotDetected); Barbiturate Screen,Urine Not Detected (NotDetected); Benzodiazepines Screen,Urine Detected (NotDetected); Cocaine Screen,Urine Not Detected (NotDetected); Methadone Screen, Urine Not Detected (NotDetected); Opiate Screen,Urine Not Detected (NotDetected); Oxycodone Screen, Urine Not Detected (NotDetected); Phencyclidine Screen,Urine Not Detected (NotDetected); Tricyclic Antidepressant,Urine Detected (NotDetected); Urn Cannabinoid Scrn Detected (NotDetected)
[2020-01-24 20:53] LABS: Specific Gravity,Urine >1.050 (1.001-1.035)
[2020-01-24] MEDS ORDERED: AMITRIPTYLINE HCL 25 MG TAB PO SCH (21:00)
[2020-01-24] MEDS ORDERED: DOXYCYCLINE 100 MG CAP PO SCH (21:00)
[2020-01-24] MEDS ORDERED: FAMOTIDINE 20 MG TAB PO SCH (21:00)
[2020-01-25] MEDS: SODIUM CHLORIDE 0.9% 1,000 ML IV SCH ×3 (01:26→16:07)
[2020-01-25] MEDS: KETOROLAC 30 MG/ML 1 ML VIAL IVP PRN ×2 (04:27→12:03)
[2020-01-25] MEDS ORDERED: ENOXAPARIN 40 MG/0.4 ML SYRINGE SQ SCH (09:00)
[2020-01-25] MEDS ORDERED: PANTOPRAZOLE 40 MG/10 ML VIAL IV SCH (09:00)
[2020-01-25] MEDS ORDERED: predniSONE 10 MG TAB PO SCH (09:00)
--- NOTE | 2020-01-25 13:07 | MR ---
EXAMINATION TYPE: MR brain wo/w con DATE OF EXAM: 01/25/2020 COMPARISON: CT brain studies from yesterday. HISTORY: Seizure TECHNIQUE: Multiplanar, multisequence images of the brain and brainstem is performed without and with IV contras t, utilizing 9.5 mL intravenous Gadavist . FINDINGS: Exam noted suboptimal as patient unable to hold still, technologist needed to perform fast brain protocol. Diffusion weighted images demonstrate no evidence of a recent infarct or other diffusion abnormality. There is no worrisome extra-axial fluid collection. The ventricular system and cisternal spaces ar e normal in size and appearance. The brain volume is age appropriate. Focal and confluent areas of T 2 hyperintensity scattered throughout the white matter bilaterally are present. Tiny cavum septum pel lucidum. T2 coronal weighted images show hippocampal gyri appear symmetric and felt within normal hart its. No suspicious edema or enhancement at this level noted. Midline structures demonstrate normal morphology. The craniocervical junction appears within normal limits. Post contrast images demonstrate no abnormal enhancement. The dural venous sinuses appear pa tent. The visualized sinuses are clear and the globes are intact. IMPRESSION: Suboptimal study with [id number] nonspecific white matter changes felt present. No suspicious focal mass or enhancement noted.
[2020-01-25 14:27] VITALS: BP 106/67; PULSE 73; RESP 15; TEMP 97.8
--- NOTE | 2020-01-25 15:14 | EEG ---
ELECTROENCEPHALOGRAM REPORT DATE OF SERVICE: 01/25/2020 PREAMBLE: This is a 54-year-old female who came to the hospital because of dizziness and generalized weakness of 2 days. She had a witnessed seizure in the ER, 2-minute tonic- clonic activity. The patient has been having frequent seizures at home for the past 3 months. This study is performed to evaluate for any epileptiform activity. EEG FINDINGS: This is a 21-channel routine EEG recording in a patient utilizing 10-20 international system with referential and bipolar montages. The background consists of well developed, well regulated, moderate voltage activity in 9-10 hertz alpha. Background is posterior-dominant and reactive to eye opening and closing. Background was reactive to some flash frequencies on photic stimulation. Drowsiness and different stages of sleep were not seen. No focal or generalized epileptiform activity was seen. EKG rhythm lead revealed no arrhythmia. IMPRESSION: This is a normal awake EEG. No focal, lateralized or epileptiform activity was seen. MMODL / IJN: [id number] /
--- NOTE | 2020-01-25 16:33 | P.DS ---
Providers Date of admission: 01/24/20 18:18 Expected date of discharge: 01/25/20 Attending physician: Ximena Robbins Consults: 01/24/20 17:50 Consult Physician Stat Consulting Provider: Tino Packer Reason/Comments: seizure Do you want consulting provider notified?: Yes Primary care physician: [facility] Course: Final diagnosis -New-onset seizures -Generalized weakness etiology is not clear -Asthma without any acute exacerbation -Fibromyalgia -Gastroesophageal reflux disease -nicotine abuse: Counseling was provided -DVT prophylaxis -GI prophylaxis Discharge disposition Patient is leaving AGAINST MEDICAL ADVICE. Patient will need to follow-up with her primary care provider and neurology in the outpatient setting. 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 Patient has a two-minute tonic-clonic activity family is not available at this time. This history was up and from the ER physician dictation. Patient is unable to provide any good history to me patient is having generalized weakness throughout the day lately. Patient apparently was having frequent seizures or lasts to 3 months. Patient didn't have any bowel or bladder incontinence tongue biting. Patient denied any fever chills denied any headache denied any focal weakness but does have significant generalized weakness. Patient denied any photophobia nausea vomiting. No signs or symptoms of sepsis. Patient was born in here basically for not eating well lately and has been weak lately has for the . Patient a CAT scan of the head which did not show any cerebral aneurysms no significant abnormality was appreciated. She had a seizure disorder as a kid but she grew out of it and never had any seizures after that for a long time 01/25/2020 Patient underwent an MRI of the brain and EEG which were both negative. Patient continues to be weak although is alert and oriented 3 and is walking to the bathroom with standby assist. Patient demanding to leave AGAINST MEDICAL ADVICE as she does not stay here another night. Neurology was consulted although patient was not evaluated by neurology at this time. Discussed with the patient about following up with primary care provider and neurology in the outpatient setting. On exam vital signs are stable. Temp is 97.8F, pulse is 73, respirations are 15, blood pressure is 106/67, oxygen saturation is 93% on room air. Cardio S1, S2 are present. Respiratory shows clear to auscultation. Abdomen is soft and nontender. Nervous system shows no focal deficits. Patient Condition at Discharge: Stable Plan - Discharge Summary New Discharge Prescriptions: No Action Ranitidine HCl 150 mg PO HS Beclomethasone Dip 80 Mcg/Puff [Qvar 80 mcg] 1 puff INHALATION RT-BID PARoxetine HCL [Paxil] 30 mg PO DAILY Ergocalciferol [Vitamin D2] 50,000 unit PO Q7D Amitriptyline HCl [Elavil] 100 mg PO HS Triamcinolone 0.025% Cream [Kenalog 0.025% Cream] 1 applic TOPICAL BID Simvastatin [Zocor] 5 mg PO HS Cyanocobalamin (Vitamin B-12) [Vitamin B-12] 2,500 mcg PO DAILY Discharge Medication List Ranitidine HCl 150 mg PO HS 06/09/18 [History] Amitriptyline HCl [Elavil] 100 mg PO HS 01/25/20 [History] Beclomethasone Dip 80 Mcg/Puff [Qvar 80 mcg] 1 puff INHALATION RT-BID 01/25/20 [History] Cyanocobalamin (Vitamin B-12) [Vitamin B-12] 2,500 mcg PO DAILY 01/25/20 [History] Ergocalciferol [Vitamin D2] 50,000 unit PO Q7D 01/25/20 [History] PARoxetine HCL [Paxil] 30 mg PO DAILY 01/25/20 [History] Simvastatin [Zocor] 5 mg PO HS 01/25/20 [History] Triamcinolone 0.025% Cream [Kenalog 0.025% Cream] 1 applic TOPICAL BID 01/25/20 [History] Follow up Appointment(s)/Referral(s): Pearl Machuca MD [Primary Care Provider] - 1-2 days
== END 2020-01-25 16:39 | disposition left against medical advice (07) ==
LOC: EC 14:05 → 5NMEDONC 18:18
PROVIDERS: ADMIT Internal Medicine; ATTEND Internal Medicine
DX: G40.89 Other seizures (principal); R53.1 Weakness; M79.7 Fibromyalgia; K21.9 Gastro-esophageal reflux disease without esophagitis; J44.9 Chronic obstructive pulmonary disease, unspecified; G47.00 Insomnia, unspecified; F40.240 Claustrophobia; F17.200 Nicotine dependence, unspecified, uncomplicated; Z79.899 Other long term (current) drug therapy; Z53.29 Procedure and treatment not carried out because of patient's decision for other reasons; Z86.69 Personal history of other diseases of the nervous system and sense organs; Z98.51 Tubal ligation status; Z82.49 Family history of ischemic heart disease and other diseases of the circulatory system; Z81.8 Family history of other mental and behavioral disorders; Z80.9 Family history of malignant neoplasm, unspecified; Z03.818 Encounter for observation for suspected exposure to other biological agents ruled out
CPT/HCPCS: 96376; 96361 ×3; 96372; 96374; 96375; 99285; 36415; 95816; 93005; 80053; 84443; 82550; 80178; 83735; 84484; 85025; 85610; 85730; 81003; 80306; 83520; 71046; 70450; 70460; 70553; G0378 ×2; G0480 ×2; U0003; J2405; J1650; J1885; C9113; A9585; Q9967; 80320; 80329

== ENCOUNTER 2022-05-05 21:59 | Emergency (ER) | payer OTHER ==
[2022-05-05 22:38] VITALS: BP 116/84; PULSE 84; RESP 16; TEMP 97.8
[2022-05-05 23:25] LABS: Anisocytosis Slight; Basophils # (A) 0.1 k/uL (0-0.2); Basophils % (A) 1 %; Eosinophils # (A) 0.2 k/uL (0-0.7); Eosinophils % (A) 3 %; HCT 40.7 % (34.0-46.0); HGB 12.4 gm/dL (11.4-16.0); Hypochromasia Moderate; Lymphocytes # (A) 2.1 k/uL (1.0-4.8); Lymphocytes % (A) 24 %; MCH 26.5 pg (25.0-35.0); MCHC 30.4 g/dL (31.0-37.0); MCV 87.1 fL (80.0-100.0); Mean Platelet Volume 6.6; Monocytes # (A) 0.4 k/uL (0-1.0); Monocytes % (A) 5 %; Neutrophils # (A) 5.6 k/uL (1.3-7.7); Neutrophils % (A) 66 %; Platelet Count 468 k/uL (150-450); RBC 4.68 m/uL (3.80-5.40); RDW 16.6 % (11.5-15.5); WBC 8.5 k/uL (3.8-10.6)
[2022-05-05 23:33] LABS: INR 0.8 (<1.2); Prothrombin Time 9.4 sec (9.0-12.0)
[2022-05-05 23:40] LABS: ALT 18 U/L (4-34); AST 20 U/L (14-36); African American GFR (CKD) >90 (>60 ml/min/1.73 sqM); Albumin 4.2 g/dL (3.5-5.0); Alkaline Phosphatase 134 U/L (38-126); Anion Gap 11 mmol/L; Blood Urea Nitrogen 8 mg/dL (7-17); Calcium 8.9 mg/dL (8.4-10.2); Carbon Dioxide 27 mmol/L (22-30); Chloride 101 mmol/L (98-107); Glucose 110 mg/dL (74-99); Non-African American GFR(CKD) 80 (>60 ml/min/1.73 sqM); Potassium 4.4 mmol/L (3.5-5.1); Sodium 139 mmol/L (137-145); Total Bilirubin 0.4 mg/dL (0.2-1.3); Total Protein 7.3 g/dL (6.3-8.2)
--- NOTE | 2022-05-06 00:34 | ED ---
General Adult HPI - General Chief complaint: Dizziness Stated complaint: Vomiting,Coughing, Dizzy Time Seen by Provider: 05/06/22 00:05 Source: patient, RN notes reviewed, old records reviewed Mode of arrival: ambulatory Limitations: no limitations - History of Present Illness Initial comments: 57 -year-old female presenting for evaluation of dizziness which is been present for the past 2 months. She has not contacted her primary care physician. She states that this is worse with standing. She denies headache. Denies chest pain or abdominal pain. Denies focal numbness or weakness. She states she has had a poor appetite but despite this has continued to gain weight. No recent weight loss. No fevers. - Related Data Home Medications Medication Instructions Recorded Confirmed raNITIdine HCL [Ranitidine HCl] 150 mg PO HS 06/09/18 01/25/20 Amitriptyline HCl [Elavil] 100 mg PO HS 01/25/20 01/25/20 Beclomethasone Dip 80 Mcg/Puff 1 puff INHALATION RT-BID 01/25/20 01/25/20 [Qvar 80 mcg] Cyanocobalamin (Vitamin B-12) 2,500 mcg PO DAILY 01/25/20 01/25/20 [Vitamin B-12] Ergocalciferol [Vitamin D2] 50,000 unit PO Q7D 01/25/20 01/25/20 PARoxetine HCL [Paxil] 30 mg PO DAILY 01/25/20 01/25/20 Simvastatin [Zocor] 5 mg PO HS 01/25/20 01/25/20 Triamcinolone 0.025% Cream 1 applic TOPICAL BID 01/25/20 01/25/20 [Kenalog 0.025% Cream] Previous Rx's Medication Instructions Recorded Meclizine [Antivert] 12.5 mg PO Q8HR PRN #30 tablet 05/06/22 Allergies Allergy/AdvReac Type Severity Reaction Status Date / Time No Known Allergies Allergy Verified 05/05/22 22:34 Review of Systems ROS Statement: Those systems with pertinent positive or pertinent negative responses have been documented in the HPI. ROS Other: All systems not noted in ROS Statement are negative. Past Medical History Past Medical History: Asthma, Chest Pain / Angina, COPD, Fibromyalgia, GERD/Reflux Additional Past Medical History / Comment(s): bipolar depression, "insomnia" History of Any Multi-Drug Resistant Organisms: None Reported Past Surgical History: Tubal Ligation Past Anesthesia/Blood Transfusion Reactions: No Reported Reaction Additional Past Anesthesia/Blood Transfusion Reaction / Comment(s): sergey sterphobia. pt stated she has never has a blood transfusion Past Psychological History: Bipolar, Depression Smoking Status: Current every day smoker Past Alcohol Use History: None Reported Past Drug Use History: None Reported - Past Family History Mother Additional Family Medical History / Comment(s): bipolar depression Father Family Medical History: Cancer, Myocardial Infarction ([place]) General Exam Limitations: no limitations General appearance: alert, in no apparent distress Head exam: Present: atraumatic, normocephalic Eye exam: Present: normal appearance, PERRL ENT exam: Present: mucous membranes dry Neck exam: Present: normal inspection. Absent: tenderness, meningismus Respiratory exam: Present: normal lung sounds bilaterally. Absent: respiratory distress, wheezes Cardiovascular Exam: Present: regular rate, normal rhythm GI/Abdominal exam: Present: soft. Absent: distended, tenderness Extremities exam: Present: normal inspection, normal capillary refill. Absent: pedal edema Neurological exam: Present: alert, oriented X3, CN II-XII intact, other (no limb ataxia, no nystagmus). Absent: motor sensory deficit Psychiatric exam: Present: normal affect, normal mood Skin exam: Present: warm, dry, intact. Absent: cyanosis, diaphoretic Course Vital Signs 05/05/22 22:34 Temperature 97.8 F Pulse Rate 84 Respiratory 16 Rate Blood Pressure 116/84 O2 Sat by Pulse 98 Oximetry EKG Findings - EKG Comments: EKG Findings:: EKG: Sinus rhythm, low voltage no ST segment changes rate of 80, FL interval 157, QRS duration 82 QTC 408 Medical Decision Making - Medical Decision Making 57-year-old female with 2 months of dizziness, no alarming features, stable vitals, EKG is sinus rhythm. Normal CBC, CMP, negative troponin. Patient has no focal numbness or weakness, no ataxia, no headache, no chest pain. She will attempt trial of meclizine and increased oral hydration. She will follow-up with her primary care physician and return with worsening or changing features. - Lab Data Result diagrams: 05/05/22 22:51 05/05/22 22:51 Lab Results 05/05/22 05/05/22 05/05/22 Range/Units 22:51 22:51 22:51 WBC 8.5 (3.8-10.6) k/uL RBC 4.68 (3.80-5.40) m/uL Hgb 12.4 (11.4-16.0) gm/dL Hct 40.7 (34.0-46.0) % MCV 87.1 (80.0-100.0) fL MCH 26.5 (25.0-35.0) pg MCHC 30.4 L (31.0-37.0) g/dL RDW 16.6 H (11.5-15.5) % Plt Count 468 H (150-450) k/uL MPV 6.6 Neutrophils % 66 % Lymphocytes % 24 % Monocytes % 5 % Eosinophils % 3 % Basophils % 1 % Neutrophils # 5.6 (1.3-7.7) k/uL Lymphocytes # 2.1 (1.0-4.8) k/uL Monocytes # 0.4 (0-1.0) k/uL Eosinophils # 0.2 (0-0.7) k/uL Basophils # 0.1 (0-0.2) k/uL Hypochromasia Moderate Anisocytosis Slight PT 9.4 (9.0-12.0) sec INR 0.8 (<1.2) APTT 23.0 (22.0-30.0) sec Sodium 139 (137-145) mmol/L Potassium 4.4 (3.5-5.1) mmol/L Chloride 101 (98-107) mmol/L Carbon Dioxide 27 (22-30) mmol/L Anion Gap 11 mmol/L BUN 8 (7-17) mg/dL Creatinine 0.82 (0.52-1.04) mg/dL Est GFR (CKD-EPI)AfAm >90 (>60 ml/min/1.73 sqM) Est GFR (CKD-EPI)NonAf 80 (>60 ml/min/1.73 sqM) Glucose 110 H (74-99) mg/dL Calcium 8.9 (8.4-10.2) mg/dL Total Bilirubin 0.4 (0.2-1.3) mg/dL AST 20 (14-36) U/L ALT 18 (4-34) U/L Alkaline Phosphatase 134 H (38-126) U/L Troponin I (0.000-0.034) ng/mL Total Protein 7.3 (6.3-8.2) g/dL Albumin 4.2 (3.5-5.0) g/dL 05/05/22 Range/Units 22:51 WBC (3.8-10.6) k/uL RBC (3.80-5.40) m/uL Hgb (11.4-16.0) gm/dL Hct (34.0-46.0) % MCV (80.0-100.0) fL MCH (25.0-35.0) pg MCHC (31.0-37.0) g/dL RDW (11.5-15.5) % Plt Count (150-450) k/uL MPV Neutrophils % % Lymphocytes % % Monocytes % % Eosinophils % % Basophils % % Neutrophils # (1.3-7.7) k/uL Lymphocytes # (1.0-4.8) k/uL Monocytes # (0-1.0) k/uL Eosinophils # (0-0.7) k/uL Basophils # (0-0.2) k/uL Hypochromasia Anisocytosis PT (9.0-12.0) sec INR (<1.2) APTT (22.0-30.0) sec Sodium (137-145) mmol/L Potassium (3.5-5.1) mmol/L Chloride (98-107) mmol/L Carbon Dioxide (22-30) mmol/L Anion Gap mmol/L BUN (7-17) mg/dL Creatinine (0.52-1.04) mg/dL Est GFR (CKD-EPI)AfAm (>60 ml/min/1.73 sqM) Est GFR (CKD-EPI)NonAf (>60 ml/min/1.73 sqM) Glucose (74-99) mg/dL Calcium (8.4-10.2) mg/dL Total Bilirubin (0.2-1.3) mg/dL AST (14-36) U/L ALT (4-34) U/L Alkaline Phosphatase (38-126) U/L Troponin I <0.012 (0.000-0.034) ng/mL Total Protein (6.3-8.2) g/dL Albumin (3.5-5.0) g/dL Disposition Clinical Impression: Dizziness Disposition: HOME SELF-CARE Condition: Fair Instructions (If sedation given, give patient instructions): Dizziness (ED) Prescriptions: Meclizine [Antivert] 12.5 mg PO Q8HR PRN #30 tablet PRN Reason: Vertigo Is patient prescribed a controlled substance at d/c from ED?: No Referrals: Pearl Machuca MD [Primary Care Provider] - 1-2 days Time of Disposition: 00:33
== END 2022-05-06 00:42 | disposition home or self-care (01) ==
LOC: EC 21:59
DX: R42 Dizziness and giddiness (principal); J45.909 Unspecified asthma, uncomplicated; J44.9 Chronic obstructive pulmonary disease, unspecified; K21.9 Gastro-esophageal reflux disease without esophagitis; F17.200 Nicotine dependence, unspecified, uncomplicated; Z79.51 Long term (current) use of inhaled steroids
CPT/HCPCS: 36415; 80053; 84484; 85025; 85610; 85730; 93005; 99284

== ENCOUNTER 2022-07-10 04:48 | Emergency (ER) | payer OTHER ==
[2022-07-10 04:54] VITALS: TEMP 97.8
[2022-07-10] MEDS ORDERED: IPRATROPIUM-ALBUTEROL 3 ML NEB INHALATION STA ×2 (05:15)
[2022-07-10] MEDS ORDERED: methylPREDNISolone SOD SUCCI 125 MG/2 ML VIAL IM ONE (05:15)
--- NOTE | 2022-07-10 05:21 | ED ---
General Adult HPI - General Chief complaint: Upper Respiratory Infection Stated complaint: sob Time Seen by Provider: 07/10/22 04:59 Source: patient, family, RN notes reviewed, old records reviewed Mode of arrival: wheelchair Limitations: no limitations - History of Present Illness Initial comments: Patient is a 57-year-old female with past medical history remarkable for COPD, asthma, chronic tobacco use who presents emergency Department complaining of upper respiratory illness for the last 2 weeks as well as worsening shortness of breath. States that she is short of breath secondary to nasal congestion, or upper respiratory illness. Has been attempting to use home inhalers without much success. Was not vaccinated for Covid or flu. No known sick contacts. He endorses a productive cough. Denies chest pain. Denies abdominal pain, nausea, vomiting, diarrhea. Endorses rhinorrhea. Denies sore throat. His no other acute complaints at this time. Presents over concern for worsening shortness of breath. - Related Data Home Medications Medication Instructions Recorded Confirmed raNITIdine HCL [Ranitidine HCl] 150 mg PO HS 06/09/18 01/25/20 Amitriptyline HCl [Elavil] 100 mg PO HS 01/25/20 01/25/20 Beclomethasone Dip 80 Mcg/Puff 1 puff INHALATION RT-BID 01/25/20 01/25/20 [Qvar 80 mcg] Cyanocobalamin (Vitamin B-12) 2,500 mcg PO DAILY 01/25/20 01/25/20 [Vitamin B-12] Ergocalciferol [Vitamin D2] 50,000 unit PO Q7D 01/25/20 01/25/20 PARoxetine HCL [Paxil] 30 mg PO DAILY 01/25/20 01/25/20 Simvastatin [Zocor] 5 mg PO HS 01/25/20 01/25/20 Triamcinolone 0.025% Cream 1 applic TOPICAL BID 01/25/20 01/25/20 [Kenalog 0.025% Cream] Previous Rx's Medication Instructions Recorded Meclizine [Antivert] 12.5 mg PO Q8HR PRN #30 tablet 05/06/22 Albuterol Inhaler [Ventolin Hfa 1 puff INHALATION TID #8 gm 07/10/22 Inhaler] Doxycycline Hyclate 100 mg PO BID 7 Days #14 capsule 11/19/22 predniSONE [Deltasone] 40 mg PO DAILY 5 Days #10 tab 07/10/22 Allergies Allergy/AdvReac Type Severity Reaction Status Date / Time No Known Allergies Allergy Verified 05/05/22 22:34 Review of Systems ROS Statement: Those systems with pertinent positive or pertinent negative responses have been documented in the HPI. Review of Systems: CONST: Denies fever EYES: Denies blurry vision ENT: Endorses nasal congestion C/V: Denies Chest pain RESP: Endorses shortness of breath GI: Denies abdominal pain : Denies dysuria SKIN: Denies rash. MSK: Denies joint pain. NEURO: Denies headache ROS Other: All systems not noted in ROS Statement are negative. Past Medical History Past Medical History: Asthma, Chest Pain / Angina, COPD, Fibromyalgia, GERD/Reflux Additional Past Medical History / Comment(s): bipolar depression, "insomnia" History of Any Multi-Drug Resistant Organisms: None Reported Past Surgical History: Tubal Ligation Past Anesthesia/Blood Transfusion Reactions: No Reported Reaction Additional Past Anesthesia/Blood Transfusion Reaction / Comment(s): sergey sterphobia. pt stated she has never has a blood transfusion Past Psychological History: Bipolar, Depression Smoking Status: Current every day smoker Past Alcohol Use History: None Reported Past Drug Use History: None Reported - Past Family History Mother Additional Family Medical History / Comment(s): bipolar depression Father Family Medical History: Cancer, Myocardial Infarction ([place]) General Exam - General Exam Comments Initial Comments: General: Appears in no acute distress. HEAD: Normal with no signs of head trauma. EYES: PERRLA, EOMI, conjunctiva normal, no discharge. ENT: Hearing grossly intact, normal oropharynx. RESPIRATORY: Bilateral end expiratory wheezing. No hypoxia. Minimal increased work of breathing. C/V: Regular rate and rhythm. S1 and S2 auscultated, no edema, peripheral pulses 2+ and intact throughout ABD: Abd is soft, nontender, nondistended EXT: Normal range of motion, no obvious deformity SKIN: No rashes or lesions observed on exposed skin. NEURO: Alert and oriented 4. Limitations: no limitations Course Vital Signs 07/10/22 07/10/22 07/10/22 04:49 05:53 06:02 Temperature 97.8 F Pulse Rate 96 82 85 Respiratory 24 Rate Blood Pressure 142/57 O2 Sat by Pulse 98 Oximetry Medical Decision Making - Medical Decision Making Based on the patient's presentation and physical exam, I do believe she is likely having a COPD exacerbation and possible upper respiratory infection at this time. Vital signs are within acceptable limits. We will obtain a screening EKG, chest x-ray, vital signs. She was in agreement with this plan. She'll be sent directly treated for COPD with IM Solu-Medrol as well as multiple breathing treatments. EKG shows no signs of acute ischemia. There is some baseline artifact secondary to motion artifact.Chest x-ray as interpreted by myself revealed no acute cardiopulmonary process. No pneumothorax, no infiltrate, no bony traumatic injury. Patient is Covid, flu, RSV negative. On reevaluation following breathing treatments, patient's work of breathing is greatly improved. Wheezing is improved. She is no longer coughing. We discussed results for chest x-ray and labs. I believe it is safe for her to be discharged home at this time. She was in agreement this plan. We'll empirically treat for bronchitis with doxycycline. She also received prescription for prednisone and albuterol inhaler. I will provide the patient with a prescription for albuterol inhaler, prednisone, doxycycline. I instructed the patient to follow up with their PCP in the next 1-3 days. I explained that the patient should return to the emergency department if they experience any worsening symptoms. Strict return precautions were discussed with the patient. The patient expressed understanding of these instructions. I answered all questions that the patient had. The patient was discharged home in good condition with their prescriptions and follow up information. - Lab Data Lab Results 07/10/22 Range/Units 05:15 Influenza Type A (PCR) Not Detected (Not Detectd) Influenza Type B (PCR) Not Detected (Not Detectd) RSV (PCR) Not Detected (Not Detectd) SARS-CoV-2 (PCR) Not Detected (Not Detectd) - EKG Data -: EKG Interpreted by Me EKG Comments: 12-lead Electrocardiogram Interpretation Note EKG was reviewed and interpreted by myself. 12-lead ECG performed at 0515 is interpreted by me as revealing normal sinus rhythm at a rate of 83 beats per minute. [place] is normal. [place] interval is 160 ms, QRS duration is 86 ms, QTc is 384 ms.. There were no ST or T wave abnormalities to suggest myocardial ischemia or injury. R wave progression across the precordium was satisfactory. By my interpretation this EKG is non-diagnostic for acute ischemia. When compared with prior EKG from April 2022, no significant change. Disposition Clinical Impression: Bronchitis, COPD exacerbation Disposition: HOME SELF-CARE Condition: Good Instructions (If sedation given, give patient instructions): Acute Bronchitis (ED), COPD (Chronic Obstructive Pulmonary Disease) (ED) Prescriptions: predniSONE [Deltasone] 40 mg PO DAILY 5 Days #10 tab Doxycycline Hyclate 100 mg PO BID 7 Days #14 capsule Albuterol Inhaler [Ventolin Hfa Inhaler] 1 puff INHALATION TID #8 gm Is patient prescribed a controlled substance at d/c from ED?: No Referrals: None,Stated [Primary Care Provider] - 1-2 days Time of Disposition: 06:25
--- NOTE | 2022-07-10 05:43 | XR ---
EXAMINATION TYPE: XR chest 2V DATE OF EXAM: 07/10/2022 COMPARISON: 01/24/2020 HISTORY: Cough TECHNIQUE: FINDINGS: Heart is normal. Lungs are clear. Diaphragm is normal. Bony thorax appears normal. IMPRESSION: Normal chest. No change
[2022-07-10] MEDS ORDERED: DOXYCYCLINE 100 MG CAP PO STA (06:26)
[2022-07-10 06:39] VITALS: BP 119/81; PULSE 92; RESP 18
== END 2022-07-10 06:45 | disposition home or self-care (01) ==
LOC: EC 04:48
DX: J44.1 Chronic obstructive pulmonary disease with (acute) exacerbation (principal); K21.9 Gastro-esophageal reflux disease without esophagitis; F31.9 Bipolar disorder, unspecified; F17.200 Nicotine dependence, unspecified, uncomplicated; Z20.822 Contact with and (suspected) exposure to COVID-19; Z79.51 Long term (current) use of inhaled steroids; Z79.899 Other long term (current) drug therapy
CPT/HCPCS: 94640; 93005; 87636; 71046; 99285; 96372; J2930

== ENCOUNTER 2022-09-10 18:00 | Emergency (ER) | payer OTHER ==
[2022-09-10 18:06] VITALS: TEMP 98.2
--- NOTE | 2022-09-10 18:43 | ED ---
General Adult HPI - General Chief complaint: Shortness of Breath Stated complaint: sob,weakness Time Seen by Provider: 09/10/22 18:10 Source: patient Mode of arrival: ambulatory Limitations: no limitations - History of Present Illness Initial comments: Dictation was produced using [employer] dictation software. please excuse any grammatical, word or spelling errors. Chief Complaint: 57-year-old female presents emergency department for fatigue and shortness of breath History of Present Illness: Patient is a 57-year-old female she has past medical history of COPD, fibromyalgia. She presents to the ER for one day fatigue, shortness of breath and cough. Patient states that this feels different from her usual COPD she does have some shortness of breath. Denies any fever or chills or night sweats. No chest pain. She does have some mild runny nose. No obvious sick contacts. The ROS documented in this emergency department record has been reviewed and confirmed by me. Those systems with pertinent positive or negative responses have been documented in the HPI. All other systems are other negative and/or noncontributory. PHYSICAL EXAM: General Impression: Alert and oriented x3, not in acute distress HEENT: Normocephalic atraumatic, extra-ocular movements intact, pupils equal and reactive to light bilaterally, mucous membranes moist. Cardiovascular: Heart regular rate and rhythm Chest: Able to complete full sentences, no retractions, no tachypnea Abdomen: abdomen soft, non-tender, non-distended, no organomegaly Musculoskeletal: Pulses present and equal in all extremities, no peripheral edema Motor: no focal deficits noted Neurological: CN II-XII grossly intact, no focal motor or sensory deficits noted Skin: Intact with no visualized rashes Psych: Normal affect and mood ED course: 57-year-old male presents emergency department for chief complaint of fatigue. she also reports shortness of breath. Symptoms are accompanied with cough. symptoms are suggestive of URI. Patient Signs upon arrival are within acceptable limits. Patient's well-appearing in no acute distress. Nursing notes and chart review was performed EKG interpreted by me: Ventricular rate 77, sinus rhythm,. 165, QRS 90, QTC 41. No CA prolongation, no QTC prolongation, no ST or T-wave changes noted. Overall, this EKG is unremarkable Laboratory evaluation obtained. CBC, coag panel, metabolic panel is unremarkable. Abdominal labs negative. 4 panel vital PCR is negative for influenza, RSV and COVID-19. Chest x-ray is nonacute. Patient observed in emergency department for there is an 30 minutes. Reevaluated at bedside at 9:35 PM found with stable medical condition. Patient is well-appearing and does not show any signs of distress. Patient discharged. Was pt. sent in by a medical professional or institution (DEBBIE Vega, EMPLOYMENT COACH, urgent care, hospital, or longterm...) When possible be specific @ -No Did you speak to anyone other than the patient for history (EMS, parent, family, police, friend...)? What history was obtained from this source @ -No Did you review nursing and triage notes (agree or disagree)? Why? @ -I reviewed and agree with nursing and triage notes Were old charts reviewed (outside hosp., previous admission, EMS record, old EKG, old radiological studies, urgent care reports/EKG's, longterm records)? Report findings @ -No old charts were reviewed Differential Diagnosis (chest pain, altered mental status, abdominal pain women, abdominal pain men, vaginal bleeding, weakness, fever, dyspnea, syncope, headache, dizziness, GI bleed, back pain, seizure, CVA, palpatations, mental health)? @ -not applicable EKG interpreted by me (3pts min.). @ -As above X-rays interpreted by me (1pt min.). @ -As above CT interpreted by me (1pt min.). @ -None done U/S interpreted by me (1pt. min.). @ -None done What testing was considered but not performed or refused? (CT, X-rays, U/S, labs)? Why? @ -D-dimer was considered however patient's not tachycardic, not hypoxic non- dyspneic she does not take beta blockers. What meds were considered but not given or refused? Why? @ -See above Did you discuss the management of the patient with other professionals (professionals i.e. DEBBIE Vega, EMPLOYMENT COACH, lab, RT, psych nurse, long term care social worker, showcase trimmer, teacher, loan officer assistant, case therapist)? Give summary @ -No Was smoking cessation discussed for >3mins.? @ -Yes Was critical care preformed (if so, how long)? @ -No Were there social determinants of health that impacted care today? How? (Homelessness, low income, unemployed, alcoholism, drug addiction, transportation, low edu. Level, literacy, decrease access to med. care, alf, rehab)? @ -No Was there de-escalation of care discussed even if they declined (Discuss DNR or withdrawal of care, Hospice)? DNR status @ -No What co-morbidities impacted this encounter? (DM, HTN, Smoking, COPD, CAD, Cancer, CVA, ARF, Chemo, Hep., AIDS, mental health diagnosis, sleep apnea, morbid obesity)? @ -None Was patient admitted / discharged? Hospital course, mention meds given and route, prescriptions, significant lab abnormalities, going to OR and other pertinent info. @ -See above Undiagnosed new problem with uncertain prognosis? @ -No Drug Therapy requiring intensive monitoring for toxicity (Heparin, Nitro, In sulin, Cardizem)? @ -No Were any procedures done? @ -No Diagnosis/symptom? @ -Upper respiratory infection Acute, or Chronic, or Acute on Chronic? @ -Acute Uncomplicated (without systemic symptoms) or Complicated (systemic symptoms)? @ -Uncomplicated Side effects of treatment? @ -No Exacerbation, Progression, or Severe Exacerbation? @ -No Poses a threat to life or bodily function? How? (Chest pain, [place], [place], pneumonia, PE, COPD, DKA, ARF, appy, cholecystitis, CVA, Diverticulitis, Homicidal, Suicidal, threat to staff... and all critical care pts) @ -No - Related Data Home Medications Medication Instructions Recorded Confirmed Amitriptyline HCl [Elavil] 150 mg PO HS 09/10/22 09/10/22 PARoxetine HCL [Paxil] 40 mg PO HS 09/10/22 09/10/22 Previous Rx's Medication Instructions Recorded Albuterol Sulfate [Proair Hfa] 1 - 2 puff INHALATION Q6HR PRN 09/10/22 #8.5 gm Allergies Allergy/AdvReac Type Severity Reaction Status Date / Time No Known Allergies Allergy Verified 09/10/22 21:00 Review of Systems ROS Statement: Those systems with pertinent positive or pertinent negative responses have been documented in the HPI. ROS Other: All systems not noted in ROS Statement are negative. Past Medical History Past Medical History: Asthma, Chest Pain / Angina, COPD, Fibromyalgia, GERD/Reflux Additional Past Medical History / Comment(s): bipolar depression, "insomnia" History of Any Multi-Drug Resistant Organisms: None Reported Past Surgical History: Tubal Ligation Past Anesthesia/Blood Transfusion Reactions: No Reported Reaction Additional Past Anesthesia/Blood Transfusion Reaction / Comment(s): clausterphobia. pt stated she has never has a blood transfusion Past Psychological History: Bipolar, Depression Smoking Status: Current every day smoker Past Alcohol Use History: None Reported Past Drug Use History: Marijuana - Past Family History Mother Additional Family Medical History / Comment(s): bipolar depression Father Family Medical History: Cancer, Myocardial Infarction ([place]) General Exam Limitations: no limitations Course Vital Signs 09/10/22 09/10/22 09/10/22 18:04 19:34 19:45 Temperature 98.2 F Pulse Rate 86 73 72 Respiratory 22 Rate Blood Pressure 127/67 O2 Sat by Pulse 96 Oximetry 09/10/22 20:00 Temperature Pulse Rate 75 Respiratory 16 Rate Blood Pressure 110/66 O2 Sat by Pulse 93 L Oximetry Medical Decision Making - Lab Data Result diagrams: 09/10/22 18:52 09/10/22 18:52 Lab Results 09/10/22 09/10/22 09/10/22 Range/Units 18:52 18:52 18:52 WBC 8.3 (3.8-10.6) k/uL RBC 4.92 (3.80-5.40) m/uL Hgb 13.1 (11.4-16.0) gm/dL Hct 40.8 (34.0-46.0) % MCV 82.8 (80.0-100.0) fL MCH 26.7 (25.0-35.0) pg MCHC 32.2 (31.0-37.0) g/dL RDW 17.1 H (11.5-15.5) % Plt Count 435 (150-450) k/uL MPV 6.8 Neutrophils % 72 % Lymphocytes % 20 % Monocytes % 5 % Eosinophils % 1 % Basophils % 1 % Neutrophils # 6.0 (1.3-7.7) k/uL Lymphocytes # 1.7 (1.0-4.8) k/uL Monocytes # 0.4 (0-1.0) k/uL Eosinophils # 0.1 (0-0.7) k/uL Basophils # 0.0 (0-0.2) k/uL Anisocytosis Slight PT 9.3 (9.0-12.0) sec INR 0.9 (<1.2) APTT 23.1 (22.0-30.0) sec Sodium 140 (137-145) mmol/L Potassium 4.3 (3.5-5.1) mmol/L Chloride 103 (98-107) mmol/L Carbon Dioxide 30 (22-30) mmol/L Anion Gap 7 mmol/L BUN 12 (7-17) mg/dL Creatinine 0.72 (0.52-1.04) mg/dL Est GFR (CKD-EPI)AfAm >90 (>60 ml/min/1.73 sqM) Est GFR (CKD-EPI)NonAf >90 (>60 ml/min/1.73 sqM) Glucose 116 H (74-99) mg/dL Calcium 9.0 (8.4-10.2) mg/dL Magnesium 2.3 (1.6-2.3) mg/dL Total Bilirubin 0.3 (0.2-1.3) mg/dL AST 18 (14-36) U/L ALT 19 (4-34) U/L Alkaline Phosphatase 109 (38-126) U/L Troponin I (0.000-0.034) ng/mL NT-Pro-B Natriuret Pep pg/mL Total Protein 7.0 (6.3-8.2) g/dL Albumin 4.1 (3.5-5.0) g/dL Influenza Type A (PCR) (Not Detectd) Influenza Type B (PCR) (Not Detectd) RSV (PCR) (Not Detectd) SARS-CoV-2 (PCR) (Not Detectd) 09/10/22 09/10/22 09/10/22 Range/Units 18:52 18:52 18:52 WBC (3.8-10.6) k/uL RBC (3.80-5.40) m/uL Hgb (11.4-16.0) gm/dL Hct (34.0-46.0) % MCV (80.0-100.0) fL MCH (25.0-35.0) pg MCHC (31.0-37.0) g/dL RDW (11.5-15.5) % Plt Count (150-450) k/uL MPV Neutrophils % % Lymphocytes % % Monocytes % % Eosinophils % % Basophils % % Neutrophils # (1.3-7.7) k/uL Lymphocytes # (1.0-4.8) k/uL Monocytes # (0-1.0) k/uL Eosinophils # (0-0.7) k/uL Basophils # (0-0.2) k/uL Anisocytosis PT (9.0-12.0) sec INR (<1.2) APTT (22.0-30.0) sec Sodium (137-145) mmol/L Potassium (3.5-5.1) mmol/L Chloride (98-107) mmol/L Carbon Dioxide (22-30) mmol/L Anion Gap mmol/L BUN (7-17) mg/dL Creatinine (0.52-1.04) mg/dL Est GFR (CKD-EPI)AfAm (>60 ml/min/1.73 sqM) Est GFR (CKD-EPI)NonAf (>60 ml/min/1.73 sqM) Glucose (74-99) mg/dL Calcium (8.4-10.2) mg/dL Magnesium (1.6-2.3) mg/dL Total Bilirubin (0.2-1.3) mg/dL AST (14-36) U/L ALT (4-34) U/L Alkaline Phosphatase (38-126) U/L Troponin I <0.012 (0.000-0.034) ng/mL NT-Pro-B Natriuret Pep 35 pg/mL Total Protein (6.3-8.2) g/dL Albumin (3.5-5.0) g/dL Influenza Type A (PCR) Not Detected (Not Detectd) Influenza Type B (PCR) Not Detected (Not Detectd) RSV (PCR) Not Detected (Not Detectd) SARS-CoV-2 (PCR) Not Detected (Not Detectd) Disposition Clinical Impression: URI (upper respiratory infection) Disposition: HOME SELF-CARE Condition: Good Instructions (If sedation given, give patient instructions): Upper Respiratory Infection (ED) Prescriptions: Albuterol Sulfate [Proair Hfa] 1 - 2 puff INHALATION Q6HR PRN #8.5 gm PRN Reason: Dyspnea Is patient prescribed a controlled substance at d/c from ED?: No Referrals: None,Stated [Primary Care Provider] - 1-2 days Time of Disposition: 21:39
[2022-09-10 19:01] LABS: Anisocytosis Slight; Basophils % (A) 1 %; Eosinophils # (A) 0.1 k/uL (0-0.7); Eosinophils % (A) 1 %; HCT 40.8 % (34.0-46.0); HGB 13.1 gm/dL (11.4-16.0); Lymphocytes # (A) 1.7 k/uL (1.0-4.8); Lymphocytes % (A) 20 %; MCH 26.7 pg (25.0-35.0); MCHC 32.2 g/dL (31.0-37.0); MCV 82.8 fL (80.0-100.0); Mean Platelet Volume 6.8; Monocytes # (A) 0.4 k/uL (0-1.0); Monocytes % (A) 5 %; Neutrophils % (A) 72 %; Platelet Count 435 k/uL (150-450); RBC 4.92 m/uL (3.80-5.40); RDW 17.1 % (11.5-15.5); WBC 8.3 k/uL (3.8-10.6)
--- NOTE | 2022-09-10 19:05 | XR ---
EXAMINATION TYPE: XR chest 2V DATE OF EXAM: 09/10/2022 COMPARISON: 07/10/2022 HISTORY: Chest pain TECHNIQUE: FINDINGS: Heart and mediastinum are normal. Lungs are clear. Diaphragm is normal. Bony thorax appears normal. IMPRESSION: Normal chest. No change.
[2022-09-10 19:10] LABS: ALT 19 U/L (4-34); AST 18 U/L (14-36); African American GFR (CKD) >90 (>60 ml/min/1.73 sqM); Albumin 4.1 g/dL (3.5-5.0); Alkaline Phosphatase 109 U/L (38-126); Anion Gap 7 mmol/L; Blood Urea Nitrogen 12 mg/dL (7-17); Carbon Dioxide 30 mmol/L (22-30); Chloride 103 mmol/L (98-107); Glucose 116 mg/dL (74-99); Magnesium 2.3 mg/dL (1.6-2.3); Non-African American GFR(CKD) >90 (>60 ml/min/1.73 sqM); Potassium 4.3 mmol/L (3.5-5.1); Sodium 140 mmol/L (137-145); Total Bilirubin 0.3 mg/dL (0.2-1.3)
[2022-09-10] MEDS ORDERED: IPRATROPIUM-ALBUTEROL 3 ML NEB INHALATION STA (19:26)
[2022-09-10 19:29] LABS: INR 0.9 (<1.2); Partial Thromboplastin Time 23.1 sec (22.0-30.0); Prothrombin Time 9.3 sec (9.0-12.0)
[2022-09-10 20:27] VITALS: RESP 16
[2022-09-10 22:15] VITALS: BP 111/78; PULSE 78
== END 2022-09-10 22:07 | disposition home or self-care (01) ==
LOC: EC 18:00
DX: J06.9 Acute upper respiratory infection, unspecified (principal); J44.9 Chronic obstructive pulmonary disease, unspecified; F17.200 Nicotine dependence, unspecified, uncomplicated; F12.90 Cannabis use, unspecified, uncomplicated; F31.9 Bipolar disorder, unspecified; Z20.822 Contact with and (suspected) exposure to COVID-19
CPT/HCPCS: 36415; 71046; 80053; 83735; 83880; 84484; 85025; 85610; 85730; 87636; 93005; 94640; 99285

== ENCOUNTER 2023-03-30 19:09 | Observation (INO) | payer OTHER ==
[2023-03-30] MEDS ORDERED: SODIUM CHLORIDE 0.9% 500 ML 500 ML IV STA (19:20)
--- NOTE | 2023-03-30 19:45 | ED ---
Overdose HPI - General Chief Complaint: Overdose Stated Complaint: overdose Time Seen by Provider: 03/30/23 19:20 Source: patient, RN notes reviewed, old records reviewed Mode of arrival: wheelchair Limitations: no limitations - History of Present Illness Initial Comments: This is a 58-year-old female for unknown overdose. Patient has been going through a lot of increased stress and likely suffering from depression per family at bedside. Patient did take overdose of Aleve believe was Cymbalta and patient presents to ER somnolent. She does go through phases of anger and fighting requiring chemical restraint here in the ER. MD Complaint: intentional overdose, accidental overdose, other (Unsure reason for overdose) -: unknown Intent: unwilling to say Associated Symptoms: depression Treatments Prior to Arrival: none - Related Data Home Medications Medication Instructions Recorded Confirmed Albuterol Sulfate [Proair Hfa] 1 - 2 puff INHALATION RT-Q6H PRN 03/30/23 03/30/23 Atorvastatin [Lipitor] 20 mg PO DAILY 03/30/23 03/30/23 DULoxetine HCL [Cymbalta] 60 mg PO DAILY 03/30/23 03/30/23 Ferrous Sulfate [Feosol] 325 mg PO BID 03/30/23 03/30/23 Omeprazole 20 mg PO DAILY 03/30/23 03/30/23 Allergies Allergy/AdvReac Type Severity Reaction Status Date / Time No Known Allergies Allergy Verified 03/30/23 19:15 Review of Systems ROS Statement: Those systems with pertinent positive or pertinent negative responses have been documented in the HPI. ROS Other: All systems not noted in ROS Statement are negative. Past Medical History Past Medical History: Asthma, Chest Pain / Angina, COPD, Fibromyalgia, GERD/Reflux Additional Past Medical History / Comment(s): bipolar depression, "insomnia" History of Any Multi-Drug Resistant Organisms: None Reported Past Surgical History: Tubal Ligation Past Anesthesia/Blood Transfusion Reactions: No Reported Reaction Additional Past Anesthesia/Blood Transfusion Reaction / Comment(s): clausterphobia. pt stated she has never has a blood transfusion Past Psychological History: Bipolar, Depression Smoking Status: Current every day smoker Past Alcohol Use History: None Reported Past Drug Use History: Marijuana - Past Family History Mother Additional Family Medical History / Comment(s): bipolar depression Father Family Medical History: Cancer, Myocardial Infarction ([place]) General Exam Limitations: no limitations General appearance: alert, in no apparent distress Head exam: Present: atraumatic, normocephalic, normal inspection Eye exam: Present: normal appearance, PERRL, EOMI. Absent: scleral icterus, conjunctival injection, periorbital swelling ENT exam: Present: normal exam, mucous membranes moist Neck exam: Present: normal inspection. Absent: tenderness, meningismus, lymphadenopathy Respiratory exam: Present: normal lung sounds bilaterally. Absent: respiratory distress, wheezes, rales, rhonchi, stridor Cardiovascular Exam: Present: regular rate, normal rhythm, normal heart sounds. Absent: systolic murmur, diastolic murmur, rubs, gallop, clicks GI/Abdominal exam: Present: soft, normal bowel sounds. Absent: distended, t enderness, guarding, rebound, rigid Extremities exam: Present: normal inspection, full ROM, normal capillary refill. Absent: tenderness, pedal edema, joint swelling, calf tenderness Back exam: Present: normal inspection Neurological exam: Present: alert, oriented X3, CN II-XII intact Psychiatric exam: Present: normal affect, normal mood Skin exam: Present: warm, dry, intact, normal color. Absent: rash Course Vital Signs 03/30/23 03/30/23 03/30/23 19:12 20:23 20:45 Temperature 99.0 F Pulse Rate 94 91 92 Respiratory 14 20 20 Rate Blood Pressure 140/103 121/93 140/92 O2 Sat by Pulse 95 90 L Oximetry 03/30/23 03/30/23 03/30/23 21:05 21:31 22:12 Temperature Pulse Rate 92 93 Respiratory 19 18 Rate Blood Pressure 121/87 126/84 O2 Sat by Pulse 93 L 90 L 89 L Oximetry 03/30/23 03/31/23 23:01 00:11 Temperature 98.7 F Pulse Rate 93 94 Respiratory 17 18 Rate Blood Pressure 118/74 119/82 O2 Sat by Pulse 90 L 90 L Oximetry - Reevaluation(s) Reevaluation #1: 03/30/23 21:48 Medical record is reviewed Reevaluation #2: 03/30/23 21:48 Patient symptoms are unchanged if not more somnolent currently Reevaluation #3: 03/30/23 21:48 Patient informed of results and questions answered, she is arousable Reevaluation #4: 03/30/23 21:48 Was pt. sent in by a medical professional or institution ([facility] Vega, [employer], urgent care, hospital, or prison...) When possible be specific @ -no Did you speak to anyone other than the patient for history (EMS, parent, family, police, friend...)? What history was obtained from this source @ -no Did you review nursing and triage notes (agree or disagree)? Why? @ -agree Are old charts reviewed (outside hosp., previous admission, EMS record, old EKG, old radiological studies, urgent care reports/EKG's, prison records)? Report findings @ -yes Differential Diagnosis (chest pain, altered mental status, abdominal pain women, abdominal pain men, vaginal bleeding, weakness, fever, dyspnea, syncope, headache, dizziness, GI bleed, back pain, seizure, CVA, palpatations, mental h ealth, musculoskeletal)? @ -prior EKG interpreted by me (3pts min.). @ -yes X-rays interpreted by me (1pt min.). @ -no CT interpreted by me (1pt min.). @ -no U/S interpreted by me (1pt. min.). @ -no What testing was considered but not performed or refused? (CT, X-rays, U/S, labs)? Why? @ -none What meds were considered but not given or refused? Why? @ -none Did you discuss the management of the patient with other professionals (professionals i.e. DEBBIE Vega, [employer], lab, RT, psych nurse, social problems specialist, recovery agent, teacher, air defense control officer, caseworker intake)? Give summary @ -no Was smoking cessation discussed for >3mins.? @ -no Was critical care preformed (if so, how long)? @ -no Were there social determinants of health that impacted care today? How? (Homelessness, low income, unemployed, alcoholism, drug addiction, transportation, low edu. Level, literacy, decrease access to med. care, care home, rehab)? @ -none Was there de-escalation of care discussed even if they declined (Discuss DNR or withdrawal of care, Hospice)? DNR status @ -no What co-morbidities impacted this encounter? (DM, HTN, Smoking, COPD, CAD, Cancer, CVA, ARF, Chemo, Hep., AIDS, mental health diagnosis, sleep apnea, morbi d obesity)? @ -none Was patient admitted / discharged? Hospital course, mention meds given and rout e, prescriptions, significant lab abnormalities, going to OR and other pertinent info. @ - 58 female to the ER for overdose unsure of accidental although patient has been severely depressed recently could be intentional overdose with suicide attempt. Patient [place] for psychiatric evaluation and monitoring of overdose that she is currently significantly somnolent Admitted Undiagnosed new problem with uncertain prognosis? @ -no Drug Therapy requiring intensive monitoring for toxicity (Heparin, Nitro, Insulin, Cardizem)? @ -no Were any procedures done? @ -no Diagnosis/symptom? @ -Overdose, depression suicidal intention Acute, or Chronic, or Acute on Chronic? @ -Acute Uncomplicated (without systemic symptoms) or Complicated (systemic symptoms)? @ -Complicated Side effects of treatment? @ -no Exacerbation, Progression, or Severe Exacerbation? @ -exacerbation Poses a threat to life or bodily function? How? (Chest pain, [place], HI, pneumonia, PE, COPD, DKA, ARF, appy, cholecystitis, CVA, Diverticulitis, Homicidal, Suicidal, threat to staff... and all critical care pts) @ -yes with overdose and suicidal Reevaluation #5: 03/30/23 21:48 Differential Altered Mental Status: Hypoglycemia, DKA, hypercapnia, ETOH, overdose, CO poisoning, trauma, myxedema coma, HTN encephalopathy, infection, encephalitis, psychosis, intercranial hemorrhage, hepatic encephalopathy, meningitis, CVA, this is not meant to be an all-inclusive list - Consultations Consultation #1: Spoke with markell whose okay for admission Medical Decision Making - Medical Decision Making 58 female to the ER for overdose unsure of accidental although patient has been severely depressed recently could be intentional overdose with suicide attempt. Patient will be admitted today for psychiatric evaluation as she is currently not medically clear. Patient will also need evaluation and monitoring of overdose because of the fact that she is currently significantly somnolent and continues to be - Lab Data Result diagrams: 03/30/23 19:40 03/30/23 19:40 Lab Results 03/30/23 03/30/23 03/30/23 Range/Units 19:40 19:40 19:40 WBC 10.8 H (3.8-10.6) k/uL RBC 4.99 (3.80-5.40) m/uL Hgb 14.6 (11.4-16.0) gm/dL Hct 44.2 (34.0-46.0) % MCV 88.7 (80.0-100.0) fL MCH 29.2 (25.0-35.0) pg MCHC 33.0 (31.0-37.0) g/dL RDW 15.2 (11.5-15.5) % Plt Count 345 (150-450) k/uL MPV 6.9 Neutrophils % 80 % Lymphocytes % 14 % Monocytes % 5 % Eosinophils % 1 % Basophils % 0 % Neutrophils # 8.6 H (1.3-7.7) k/uL Lymphocytes # 1.5 (1.0-4.8) k/uL Monocytes # 0.5 (0-1.0) k/uL Eosinophils # 0.1 (0-0.7) k/uL Basophils # 0.0 (0-0.2) k/uL Sodium (137-145) mmol/L Potassium (3.5-5.1) mmol/L Chloride (98-107) mmol/L Carbon Dioxide (22-30) mmol/L Anion Gap mmol/L BUN (7-17) mg/dL Creatinine (0.52-1.04) mg/dL Est GFR (CKD-EPI)AfAm (>60 ml/min/1.73 sqM) Est GFR (CKD-EPI)NonAf (>60 ml/min/1.73 sqM) Glucose (74-99) mg/dL Calcium (8.4-10.2) mg/dL Total Bilirubin (0.2-1.3) mg/dL AST (14-36) U/L ALT (4-34) U/L Alkaline Phosphatase (38-126) U/L Total Protein (6.3-8.2) g/dL Albumin (3.5-5.0) g/dL Urine Color Urine Appearance (Clear) Urine pH (5.0-8.0) Ur Specific [place] (1.001-1.035) Urine Protein (Negative) Urine Glucose (UA) (Negative) Urine Ketones (Negative) Urine Blood (Negative) Urine Nitrite (Negative) Urine Bilirubin (Negative) Urine Urobilinogen (<2.0) mg/dL Ur Leukocyte Esterase (Negative) Urine RBC (0-5) /hpf Urine WBC (0-5) /hpf Ur Squamous Epith Cells (0-4) /hpf Urine Mucus (None) /hpf Urine HCG, Qual Not Detected (Not Detectd) Salicylates mg/dL Urine Opiates Screen Not Detected (NotDetected) Ur Oxycodone Screen Detected H (NotDetected) Urine Methadone Screen Not Detected (NotDetected) Ur Propoxyphene Screen Not Detected (NotDetected) Acetaminophen ug/mL Ur Barbiturates Screen Not Detected (NotDetected) U Tricyclic Antidepress Not Detected (NotDetected) Ur Phencyclidine Scrn Not Detected (NotDetected) Ur Amphetamines Screen Not Detected (NotDetected) U Methamphetamines Scrn Not Detected (NotDetected) U Benzodiazepines Scrn Not Detected (NotDetected) Urine Cocaine Screen Not Detected (NotDetected) U Marijuana (THC) Screen Detected H (NotDetected) Serum Alcohol mg/dL 03/30/23 03/30/23 Range/Units 19:40 19:40 WBC (3.8-10.6) k/uL RBC (3.80-5.40) m/uL Hgb (11.4-16.0) gm/dL Hct (34.0-46.0) % MCV (80.0-100.0) fL MCH (25.0-35.0) pg MCHC (31.0-37.0) g/dL RDW (11.5-15.5) % Plt Count (150-450) k/uL MPV Neutrophils % % Lymphocytes % % Monocytes % % Eosinophils % % Basophils % % Neutrophils # (1.3-7.7) k/uL Lymphocytes # (1.0-4.8) k/uL Monocytes # (0-1.0) k/uL Eosinophils # (0-0.7) k/uL Basophils # (0-0.2) k/uL Sodium 138 (137-145) mmol/L Potassium 4.0 (3.5-5.1) mmol/L Chloride 104 (98-107) mmol/L Carbon Dioxide 22 (22-30) mmol/L Anion Gap 12 mmol/L BUN 10 (7-17) mg/dL Creatinine 0.67 (0.52-1.04) mg/dL Est GFR (CKD-EPI)AfAm >90 (>60 ml/min/1.73 sqM) Est GFR (CKD-EPI)NonAf >90 (>60 ml/min/1.73 sqM) Glucose 123 H (74-99) mg/dL Calcium 9.4 (8.4-10.2) mg/dL Total Bilirubin 0.5 (0.2-1.3) mg/dL AST 21 (14-36) U/L ALT 20 (4-34) U/L Alkaline Phosphatase 110 (38-126) U/L Total Protein 7.5 (6.3-8.2) g/dL Albumin 4.4 (3.5-5.0) g/dL Urine Color Light Red Urine Appearance Clear (Clear) Urine pH 6.5 (5.0-8.0) Ur Specific [place] 1.026 (1.001-1.035) Urine Protein Trace H (Negative) Urine Glucose (UA) Negative (Negative) Urine Ketones Negative (Negative) Urine Blood Negative (Negative) Urine Nitrite Negative (Negative) Urine Bilirubin Negative (Negative) Urine Urobilinogen 3.0 (<2.0) mg/dL Ur Leukocyte Esterase Trace H (Negative) Urine RBC 2 (0-5) /hpf Urine WBC 1 (0-5) /hpf Ur Squamous Epith Cells 3 (0-4) /hpf Urine Mucus Rare H (None) /hpf Urine HCG, Qual (Not Detectd) Salicylates <1.0 mg/dL Urine Opiates Screen (NotDetected) Ur Oxycodone Screen (NotDetected) Urine Methadone Screen (NotDetected) Ur Propoxyphene Screen (NotDetected) Acetaminophen <10.0 ug/mL Ur Barbiturates Screen (NotDetected) U Tricyclic Antidepress (NotDetected) Ur Phencyclidine Scrn (NotDetected) Ur Amphetamines Screen (NotDetected) U Methamphetamines Scrn (NotDetected) U Benzodiazepines Scrn (NotDetected) Urine Cocaine Screen (NotDetected) U Marijuana (THC) Screen (NotDetected) Serum Alcohol <10 mg/dL - EKG Data -: EKG Interpreted by Me (EKG is sinus 89 OK 183 QRS 90 QTC 375) Disposition Clinical Impression: Accidental drug overdose, Poisoning by opiates and related narcotics, other, Drug overdose Disposition: ADMITTED IP TO THIS HOSP Condition: Fair Is patient prescribed a controlled substance at d/c from ED?: No Time of Disposition: 21:40
[2023-03-30 19:50] LABS: Basophils % (A) 0 %; Eosinophils # (A) 0.1 k/uL (0-0.7); Eosinophils % (A) 1 %; HCT 44.2 % (34.0-46.0); HGB 14.6 gm/dL (11.4-16.0); Lymphocytes # (A) 1.5 k/uL (1.0-4.8); Lymphocytes % (A) 14 %; MCH 29.2 pg (25.0-35.0); MCV 88.7 fL (80.0-100.0); Mean Platelet Volume 6.9; Monocytes # (A) 0.5 k/uL (0-1.0); Monocytes % (A) 5 %; Neutrophils # (A) 8.6 k/uL (1.3-7.7); Neutrophils % (A) 80 %; Platelet Count 345 k/uL (150-450); RBC 4.99 m/uL (3.80-5.40); RDW 15.2 % (11.5-15.5); WBC 10.8 k/uL (3.8-10.6)
[2023-03-30] MEDS ORDERED: LORazepam 2 MG/ML INJ IV STA ×2 (19:56→20:03)
[2023-03-30] MEDS ORDERED: diphenhydrAMINE 50 MG/ML 1 ML VIAL IVP STA (20:03)
[2023-03-30 20:05] LABS: ALT 20 U/L (4-34); AST 21 U/L (14-36); Acetaminophen <10.0 ug/mL; African American GFR (CKD) >90 (>60 ml/min/1.73 sqM); Albumin 4.4 g/dL (3.5-5.0); Alcohol <10 mg/dL; Alkaline Phosphatase 110 U/L (38-126); Anion Gap 12 mmol/L; Blood Urea Nitrogen 10 mg/dL (7-17); Calcium 9.4 mg/dL (8.4-10.2); Carbon Dioxide 22 mmol/L (22-30); Chloride 104 mmol/L (98-107); Glucose 123 mg/dL (74-99); Non-African American GFR(CKD) >90 (>60 ml/min/1.73 sqM); Salicylate <1.0 mg/dL; Sodium 138 mmol/L (137-145); Total Bilirubin 0.5 mg/dL (0.2-1.3); Total Protein 7.5 g/dL (6.3-8.2)
[2023-03-30 20:35] LABS: Appearance,Urine Clear (Clear); Bilirubin,Urine Negative (Negative); Blood,Urine Negative (Negative); Color,Urine Light Red; Glucose,Urine (UA) Negative (Negative); Ketones,Urine Negative (Negative); Leukocyte Esterase,Urine Trace (Negative); Mucus,Urine Rare /hpf; Nitrite,Urine Negative (Negative); PH, Urine 6.5 (5.0-8.0); Protein,Urine Trace (Negative); RBC,Urine 2 /hpf (0-5); Specific Gravity,Urine 1.026 (1.001-1.035); Squamous Epithelial Cell,Urine 3 /hpf (0-4); WBC,Urine 1 /hpf (0-5)
[2023-03-30 20:44] LABS: Amphetamine Screen,Urine Not Detected (NotDetected); Barbiturate Screen,Urine Not Detected (NotDetected); Benzodiazepines Screen,Urine Not Detected (NotDetected); Cocaine Screen,Urine Not Detected (NotDetected); Methadone Screen, Urine Not Detected (NotDetected); Opiate Screen,Urine Not Detected (NotDetected); Oxycodone Screen, Urine Detected (NotDetected); Phencyclidine Screen,Urine Not Detected (NotDetected); Tricyclic Antidepressant,Urine Not Detected (NotDetected); Urn Cannabinoid Scrn Detected (NotDetected)
[2023-03-30] MEDS ORDERED: NALOXONE 0.4 MG/ML 1 ML VIAL IV PRN (21:44)
[2023-03-30] MEDS ORDERED: ONDANSETRON 4 MG/2 ML VIAL IVP PRN (21:44)
[2023-03-30] MEDS: SODIUM CHLORIDE 0.9% 1,000 ML IV SCH (22:05)
--- NOTE | 2023-03-31 04:35 | P.HPIM ---
History of Present Illness H&P Date: 03/31/23 Chief Complaint: overdose 58-year-old female with depression Patient provides very limited history she's somnolent at time of my evaluation family not present at bedside Patient reports intentional overdose on her medications. She doesn't provide any other meaningful history at this time From reviewing the ED note except she overdosed on Cymbalta possibly. She currently provides no meaningful history however she denies any medical concerns at this time denies any chest pain trouble breathing or any pain. ED also noted that family reports that she is going through a lot of life stressors at this time review of systems Unable to obtain patient is very somnolent and uninterested in the interview on exam Constitutional: No acute distress, easily arousable does not participate with the interview Eyes: Anicteric sclerae, moist conjunctiva, Pupils equal round reactive to light ENMT: NC/AT Oropharynx clear, no erythema, or exudates Neck: Supple, no masses, or JVD No carotid bruits No thyromegaly Lungs: Clear to auscultation Clear to percussion Normal respiratory effort, no accessory muscle use Cardiovascular: Heart regular in rate and rhythm, No murmurs, gallops, or rubs No peripheral edema Abdominal: Soft Nontender, no guarding, rebound or rigidity Abdomen moving with respiration Normoactive bowel sounds No hepatomegaly, No splenomegaly No palpable mass No abdominal wall hernia noted Skin: Normal temperature, tone, texture, turgor No induration No subcutaneous nodules No rash, lesions No ulcers Extremities: No digital cyanosis No clubbing Pedal pulses intact and symmetrical Radial pulses intact and symmetrical No calf tenderness Psychiatric: Sleeping but easily arousable oriented to person and place Neuro does not follow my commands does not participate with physical exam Lymphatics: no palpable cervical or supraclavicular lymph nodes Past Medical History Past Medical History: Asthma, Chest Pain / Angina, COPD, Fibromyalgia, GERD/Reflux Additional Past Medical History / Comment(s): bipolar depression, "insomnia" History of Any Multi-Drug Resistant Organisms: None Reported Past Surgical History: Tubal Ligation Past Anesthesia/Blood Transfusion Reactions: No Reported Reaction Additional Past Anesthesia/Blood Transfusion Reaction / Comment(s): clausterphobia. pt stated she has never has a blood transfusion Past Psychological History: Bipolar, Depression Additional Psychological History / Comment(s): lives with her mom,daughter and grandchild Smoking Status: Current every day smoker Past Alcohol Use History: None Reported Additional Past Alcohol Use History / Comment(s): started smokign at age 17(1981) smokes 1 ppd Past Drug Use History: Marijuana - Past Family History Mother Additional Family Medical History / Comment(s): bipolar depression Father Family Medical History: Cancer, Myocardial Infarction ([place]) Medications and Allergies Home Medications Medication Instructions Recorded Confirmed Type Albuterol Sulfate [Proair Hfa] 1 - 2 puff INHALATION RT-Q6H PRN 03/30/23 03/30/23 History Atorvastatin [Lipitor] 20 mg PO DAILY 03/30/23 03/30/23 History DULoxetine HCL [Cymbalta] 60 mg PO DAILY 03/30/23 03/30/23 History Ferrous Sulfate [Feosol] 325 mg PO BID 03/30/23 03/30/23 History Omeprazole 20 mg PO DAILY 03/30/23 03/30/23 History Allergies Allergy/AdvReac Type Severity Reaction Status Date / Time No Known Allergies Allergy Verified 03/30/23 19:15 Physical Exam Vitals: Vital Signs Temp Pulse Pulse Resp BP BP Pulse Ox 03/31/23 01:40 98.9 F 94 20 116/77 95 03/31/23 00:11 98.7 F 94 18 119/82 90 L 03/30/23 23:01 93 17 118/74 90 L 03/30/23 22:12 93 18 126/84 89 L 03/30/23 21:31 90 L 03/30/23 21:05 92 19 121/87 93 L 03/30/23 20:45 92 20 140/92 90 L 03/30/23 20:23 91 20 121/93 03/30/23 19:12 99.0 F 94 14 140/103 95 Intake and Output 03/30/23 03/30/23 03/31/23 14:59 22:59 06:59 Other: Voiding Method Diaper External Catheter Weight 81.647 kg 81.647 kg Results CBC & Chem 7: 03/30/23 19:40 03/30/23 19:40 Labs: Abnormal Lab Results - Last 24 Hours (Table) 03/30/23 03/30/23 03/30/23 Range/Units 19:40 19:40 19:40 WBC 10.8 H (3.8-10.6) k/uL Neutrophils # 8.6 H (1.3-7.7) k/uL Glucose 123 H (74-99) mg/dL Urine Protein (Negative) Ur Leukocyte Esterase (Negative) Urine Mucus (None) /hpf Ur Oxycodone Screen Detected H (NotDetected) U Marijuana (THC) Screen Detected H (NotDetected) 03/30/23 Range/Units 19:40 WBC (3.8-10.6) k/uL Neutrophils # (1.3-7.7) k/uL Glucose (74-99) mg/dL Urine Protein Trace H (Negative) Ur Leukocyte Esterase Trace H (Negative) Urine Mucus Rare H (None) /hpf Ur Oxycodone Screen (NotDetected) U Marijuana (THC) Screen (NotDetected) Assessment and Plan Assessment: 58-year-old female with history of depression brought in by family due to suspected intentional overdose on her medications and a suicidal attempt I discussed the case with ED doctor and accepted the admission for intentional drug overdose and a suicidal attempt for psych evaluation with anticipated length of stay less than 2 midnights Acute metabolic encephalopathy secondary to drug overdose Intentional drug overdose and a suicidal attempt EKG no acute ST changes, no QT prolongation, normal sinus rhythm Blood work overall unremarkable white count 10.8, hemoglobin 14.6 When necessary 10 creatinine 0.67 Sodium 138 potassium 4 Urine was positive for marijuana and opiates Bedside sitter for safety Psych evaluation for suicidal attempt Gentle IV fluid hydration normal saline Monitor vital signs Monitor urine output Full code DVT prophylaxis heparin subcu 3 times a day
[2023-03-31] MEDS: SODIUM CHLORIDE 0.9% 1,000 ML IV SCH ×2 (07:48→12:44)
[2023-03-31] MEDS: ATORVASTATIN 20 MG TAB PO SCH (07:48)
[2023-03-31] MEDS: PANTOPRAZOLE 40 MG TABLET PO SCH (07:48)
[2023-03-31] MEDS ORDERED: LORazepam 2 MG/ML INJ IM PRN (14:02)
[2023-03-31] MEDS ORDERED: diphenhydrAMINE 50 MG/ML 1 ML VIAL IM PRN (14:03)
[2023-03-31] MEDS ORDERED: HALOPERIDOL LACTATE 5 MG/ML 1 ML VIAL IM PRN (14:03)
--- NOTE | 2023-03-31 14:05 | P.CN ---
Psychiatric Consult - . Consult date: 03/31/23 Consult:: 03/31/23 14:05 IDENTIFYING DATA: This patient is a , unemployed, 58-year-old female with significant history of mood disorder who presented to our hospital on 03/30/2023 after intentional overdose on Cymbalta. HISTORY OF PRESENT ILLNESS: The patient presented to the hospital on 03/30/2023 after intentional overdose on Cymbalta. There is also concern that the patient overdosed on Aleve as well. The patient presented to the emergency department as somnolent however had intermittent phases of anger and combativeness that required chemical restraint as the patient attempted to elope. The patient was administered 4 mg of IV Ativan as well as Benadryl. The patient was petitioned by her daughter who reported "She has not been herself since she has been off her medication for depression and bipolar. She is not suicidal but she is going through personal and housing issues that make her want to give up." Psychiatry has been consulted for evaluation of depression and suicide attempt by overdose. Currently, the patient is quite somnolent. However, the patient does report that she has "tired of being tired all the time." She states that she has not been doing well for the past month. She does admit to overdosing intentionally on Cymbalta. She reports "I took the Cymbalta with the hope that I would sleep and not wake up." The patient reports that she is going through financial stressors and pending eviction. She says that this was her first attempt at suicide. The patient is too somnolent to continue the conversation. PAST PSYCHIATRIC HISTORY: Patient has a reported history of bipolar disorder. The patient's current home medications include Cymbalta. Reportedly, the patient is on other psychotropic medications that are unknown at this time. No previous psychiatric admissions. Patient reportedly follows with outpatient psychiatrist. Patient denies any history of suicide attempts in the past prior to this. PAST MEDICAL HISTORY: Past Medical History: Asthma, Chest Pain / Angina, COPD, Fibromyalgia, GERD/Reflux Additional Past Medical History / Comment(s): bipolar depression, "insomnia" History of Any Multi-Drug Resistant Organisms: None Reported Past Surgical History: Tubal Ligation Past Anesthesia/Blood Transfusion Reactions: No Reported Reaction Additional Past Anesthesia/Blood Transfusion Reaction / Comment(s): clausterphobia. pt stated she has never has a blood transfusion Past Psychological History: Bipolar, Depression Additional Psychological History / Comment(s): lives with her mom,daughter and grandchild Smoking Status: Current every day smoker Past Alcohol Use History: None Reported Additional Past Alcohol Use History / Comment(s): started smokign at age 17(1980) smokes 1 ppd Past Drug Use History: Marijuana ALLERGIES: NKDA CHEMICAL DEPENDENCY HISTORY: Reported history of marijuana use. Patient is listed as occurring every day tobacco use. No reported alcohol use. FAMILY PSYCHIATRIC/SUBSTANCE USE HISTORY: Unable to assess SOCIAL HISTORY: Patient is reportedly . She is currently facing possible eviction. MENTAL STATUS EXAM: General Appearance: Patient appears to be stated age is somnolent but attempts to cooperate. Patient appears to have fair hygiene and grooming wearing hospital gown with poor eye contact. Obese body habitus. Behavior: Patient is calmly lying in bed without any agitated behavior. Speech: Patient's speech is fluent and nonpressured. Nonspontaneous. Mood/Affect: Patient reports their mood is "very tired", affect is congruent and somnolent Suicidality/Homicidality: Patient does not endorse current suicidal or homicidal ideation however admits to the suicide attempt. Perceptions: Patient denies any visual hallucinations and denies any auditory hallucinations Though content/process: Somnolent at this time and cannot be properly assessed. Memory and concentration: Grossly poor at this time Judgment and insight: Grossly poor at this time Vital Signs Temp 97.3 F L 03/31/23 07:48 Pulse 91 03/31/23 13:16 Resp 16 03/31/23 11:00 BP 127/84 03/31/23 11:00 Pulse Ox 93 L 03/31/23 12:35 FiO2 Intake & Output 03/30/23 03/31/23 03/31/23 18:59 06:59 18:59 Intake Total 1000 Balance 1000 Weight 81.647 kg Intake: Intake, IV Titration 1000 Amount Sodium Chloride 0.9% 1, 1000 000 ml @ 130 mls/hr IV . [id number] [facility] Rx#:[id number] Other: Voiding Method Diaper Diaper External Catheter External Catheter # Voids 1 Laboratory Results WBC 10.8 k/uL (3.8-10.6) H 03/30/23 19:40 RBC 4.99 m/uL (3.80-5.40) 03/30/23 19:40 Hgb 14.6 gm/dL (11.4-16.0) 03/30/23 19:40 Hct 44.2 % (34.0-46.0) 03/30/23 19:40 MCV 88.7 fL (80.0-100.0) 03/30/23 19:40 MCH 29.2 pg (25.0-35.0) 03/30/23 19:40 MCHC 33.0 g/dL (31.0-37.0) 03/30/23 19:40 RDW 15.2 % (11.5-15.5) 03/30/23 19:40 Plt Count 345 k/uL (150-450) 03/30/23 19:40 MPV 6.9 03/30/23 19:40 Neutrophils % 80 % 03/30/23 19:40 Lymphocytes % 14 % 03/30/23 19:40 Monocytes % 5 % 03/30/23 19:40 Eosinophils % 1 % 03/30/23 19:40 Basophils % 0 % 03/30/23 19:40 Neutrophils # 8.6 k/uL (1.3-7.7) H 03/30/23 19:40 Lymphocytes # 1.5 k/uL (1.0-4.8) 03/30/23 19:40 Monocytes # 0.5 k/uL (0-1.0) 03/30/23 19:40 Eosinophils # 0.1 k/uL (0-0.7) 03/30/23 19:40 Basophils # 0.0 k/uL (0-0.2) 03/30/23 19:40 Sodium 138 mmol/L (137-145) 03/30/23 19:40 Potassium 4.0 mmol/L (3.5-5.1) 03/30/23 19:40 Chloride 104 mmol/L (98-107) 03/30/23 19:40 Carbon Dioxide 22 mmol/L (22-30) 03/30/23 19:40 Anion Gap 12 mmol/L 03/30/23 19:40 BUN 10 mg/dL (7-17) 03/30/23 19:40 Creatinine 0.67 mg/dL (0.52-1.04) 03/30/23 19:40 Est GFR (CKD-EPI)AfAm >90 (>60 ml/min/1.73 sqM) 03/30/23 19:40 Est GFR (CKD-EPI)NonAf >90 (>60 ml/min/1.73 sqM) 03/30/23 19:40 Glucose 123 mg/dL (74-99) H 03/30/23 19:40 Calcium 9.4 mg/dL (8.4-10.2) 03/30/23 19:40 Total Bilirubin 0.5 mg/dL (0.2-1.3) 03/30/23 19:40 AST 21 U/L (14-36) 03/30/23 19:40 ALT 20 U/L (4-34) 03/30/23 19:40 Alkaline Phosphatase 110 U/L (38-126) 03/30/23 19:40 Total Protein 7.5 g/dL (6.3-8.2) 03/30/23 19:40 Albumin 4.4 g/dL (3.5-5.0) 03/30/23 19:40 Urine Color Light Red 03/30/23 19:40 Urine Appearance Clear (Clear) 03/30/23 19:40 Urine pH 6.5 (5.0-8.0) 03/30/23 19:40 Ur Specific [place] 1.026 (1.001-1.035) 03/30/23 19:40 Urine Protein Trace (Negative) H 03/30/23 19:40 Urine Glucose (UA) Negative (Negative) 03/30/23 19:40 Urine Ketones Negative (Negative) 03/30/23 19:40 Urine Blood Negative (Negative) 03/30/23 19:40 Urine Nitrite Negative (Negative) 03/30/23 19:40 Urine Bilirubin Negative (Negative) 03/30/23 19:40 Urine Urobilinogen 3.0 mg/dL (<2.0) 03/30/23 19:40 Ur Leukocyte Esterase Trace (Negative) H 03/30/23 19:40 Urine RBC 2 /hpf (0-5) 03/30/23 19:40 Urine WBC 1 /hpf (0-5) 03/30/23 19:40 Ur Squamous Epith Cells 3 /hpf (0-4) 03/30/23 19:40 Urine Mucus Rare /hpf (None) H 03/30/23 19:40 Urine HCG, Qual Not Detected (Not Detectd) 03/30/23 19:40 Salicylates <1.0 mg/dL 03/30/23 19:40 Urine Opiates Screen Not Detected (NotDetected) 03/30/23 19:40 Ur Oxycodone Screen Detected (NotDetected) H 03/30/23 19:40 Urine Methadone Screen Not Detected (NotDetected) 03/30/23 19:40 Ur Propoxyphene Screen Not Detected (NotDetected) 03/30/23 19:40 Acetaminophen <10.0 ug/mL 03/30/23 19:40 Ur Barbiturates Screen Not Detected (NotDetected) 03/30/23 19:40 U Tricyclic Antidepress Not Detected (NotDetected) 03/30/23 19:40 Ur Phencyclidine Scrn Not Detected (NotDetected) 03/30/23 19:40 Ur Amphetamines Screen Not Detected (NotDetected) 03/30/23 19:40 U Methamphetamines Scrn Not Detected (NotDetected) 03/30/23 19:40 U Benzodiazepines Scrn Not Detected (NotDetected) 03/30/23 19:40 Urine Cocaine Screen Not Detected (NotDetected) 03/30/23 19:40 U Marijuana (THC) Screen Detected (NotDetected) H 03/30/23 19:40 Serum Alcohol <10 mg/dL 03/30/23 19:40 IMPRESSIONS: Major depressive disorder, severe with suicide attempt Intentional overdose Nicotine dependence PLAN: -At this time patient DOES meet criteria for inpatient psychiatric admission. The patient admits to overdose with intention to "go to sleep and not wake up." The patient has been petitioned. -Delirium precautions recommended with patient including - avoiding use of narcotics and [employer]ES TENDER sedatives, limit anticholinergic medications when possible, frequent re-orientation, minimize use of restraints, open window shades during the day and close them at night -Would recommend the following medication changes/additions: We will hold on psychotropic medications at this time due to the nature of the overdose and the patient's somnolence. We will place as needed orders for agitation should the patient displayed agitation and attempt to elope -EKG reviewed QTc 375 ms -Continue 1:1 sitter for safety -Cannot leave AMA at this time. Patient will need a petition and certification if attempting to leave AMA. -Will continue to follow along -When medically stable, patient is eligible for transfer to a psych bed when available. 03/31/23 14:05
[2023-04-01] MEDS: SODIUM CHLORIDE 0.9% 1,000 ML IV SCH ×3 (03:07→11:36)
[2023-04-01] MEDS ORDERED: HYDROcodone/APAP 5-325MG 1 EACH TAB PO STA (05:28)
[2023-04-01 05:30] VITALS: TEMP 98.3
[2023-04-01] MEDS: PANTOPRAZOLE 40 MG TABLET PO SCH (06:10)
[2023-04-01] MEDS: ATORVASTATIN 20 MG TAB PO SCH (10:18)
[2023-04-01 12:12] VITALS: BP 118/79; PULSE 74; RESP 18
--- NOTE | 2023-04-01 14:44 | P.PN ---
Progress Note - Text Progress Note Date: 04/01/23 Interval History: Patient was seen seated upright in her bed and was directable and agreeable to speak with database report writer in the room. Present for the initial psychotic evaluation was the patient safety manager. At this time, the patient did report that it was an intentional overdose that she has been increasingly stressed. However, the patient is vehemently against inpatient psychiatric admission. The patient's family including her and son came to visit her and they were adamantly requesting for the patient being discharged. The patient then relented stating that she was not suicidal and she had no intention but the overdose. This provider discussed with the patient and her Chava Dorman, the process of inpatient psychiatric admission and the reason for his recommendation. After significant discussion, the patient's family expresses a strong desire to forego inpatient psychiatric admission. An appropriate safety plan has been placed in lieu of inpatient psychiatric admission. The patient maintains that he will monitor her medications, but there are no access to firearms or weapons in the home, and that he will set up aftercare appointments for the patient. The patient and her family were informed that this is not the standard of care for intentional overdose. They are agreeable to signing an "AGAINST MEDICAL ADVICE" form in order to acknowledge this. Mental Status Exam: General Appearance: Patient appears to be stated age is alert, directable, and cooperative. Tearful. Behavior: Patient is calmly seated without any agitated behavior. Speech: Patient's speech is fluent and nonpressured. Mood/Affect: Mood is improving mildly, affect is congruent and euthymic. Suicidality/Homicidality: Patient denies having any suicidal or homicidal ideation intent or plan. Perceptions: Patient denies any visual hallucinations and denies any auditory hallucinations Though content/process: There is no evidence of any delusional thought content and thought process is linear and goal-directed. Memory and concentration: AOX3, grossly intact for the purposes of this session Judgment and insight: Improving mildly Vital Signs Temp 98.3 F 04/01/23 04:00 Pulse 74 04/01/23 12:00 Resp 18 04/01/23 12:00 BP 118/79 04/01/23 12:00 Pulse Ox 94 L 04/01/23 12:36 FiO2 Intake & Output 03/31/23 04/01/23 04/01/23 18:59 06:59 18:59 Intake Total 120 Balance 120 Intake: Oral 120 Other: Voiding Method Diaper Diaper Diaper External Catheter External Catheter External Catheter # Voids 1 1 1 Laboratory Results WBC 10.8 k/uL (3.8-10.6) H 03/30/23 19:40 RBC 4.99 m/uL (3.80-5.40) 03/30/23 19:40 Hgb 14.6 gm/dL (11.4-16.0) 03/30/23 19:40 Hct 44.2 % (34.0-46.0) 03/30/23 19:40 MCV 88.7 fL (80.0-100.0) 03/30/23 19:40 MCH 29.2 pg (25.0-35.0) 03/30/23 19:40 MCHC 33.0 g/dL (31.0-37.0) 03/30/23 19:40 RDW 15.2 % (11.5-15.5) 03/30/23 19:40 Plt Count 345 k/uL (150-450) 03/30/23 19:40 MPV 6.9 03/30/23 19:40 Neutrophils % 80 % 03/30/23 19:40 Lymphocytes % 14 % 03/30/23 19:40 Monocytes % 5 % 03/30/23 19:40 Eosinophils % 1 % 03/30/23 19:40 Basophils % 0 % 03/30/23 19:40 Neutrophils # 8.6 k/uL (1.3-7.7) H 03/30/23 19:40 Lymphocytes # 1.5 k/uL (1.0-4.8) 03/30/23 19:40 Monocytes # 0.5 k/uL (0-1.0) 03/30/23 19:40 Eosinophils # 0.1 k/uL (0-0.7) 03/30/23 19:40 Basophils # 0.0 k/uL (0-0.2) 03/30/23 19:40 Sodium 138 mmol/L (137-145) 03/30/23 19:40 Potassium 4.0 mmol/L (3.5-5.1) 03/30/23 19:40 Chloride 104 mmol/L (98-107) 03/30/23 19:40 Carbon Dioxide 22 mmol/L (22-30) 03/30/23 19:40 Anion Gap 12 mmol/L 03/30/23 19:40 BUN 10 mg/dL (7-17) 03/30/23 19:40 Creatinine 0.67 mg/dL (0.52-1.04) 03/30/23 19:40 Est GFR (CKD-EPI)AfAm >90 (>60 ml/min/1.73 sqM) 03/30/23 19:40 Est GFR (CKD-EPI)NonAf >90 (>60 ml/min/1.73 sqM) 03/30/23 19:40 Glucose 123 mg/dL (74-99) H 03/30/23 19:40 Calcium 9.4 mg/dL (8.4-10.2) 03/30/23 19:40 Total Bilirubin 0.5 mg/dL (0.2-1.3) 03/30/23 19:40 AST 21 U/L (14-36) 03/30/23 19:40 ALT 20 U/L (4-34) 03/30/23 19:40 Alkaline Phosphatase 110 U/L (38-126) 03/30/23 19:40 Total Protein 7.5 g/dL (6.3-8.2) 03/30/23 19:40 Albumin 4.4 g/dL (3.5-5.0) 03/30/23 19:40 Urine Color Light Red 03/30/23 19:40 Urine Appearance Clear (Clear) 03/30/23 19:40 Urine pH 6.5 (5.0-8.0) 03/30/23 19:40 Ur Specific [place] 1.026 (1.001-1.035) 03/30/23 19:40 Urine Protein Trace (Negative) H 03/30/23 19:40 Urine Glucose (UA) Negative (Negative) 03/30/23 19:40 Urine Ketones Negative (Negative) 03/30/23 19:40 Urine Blood Negative (Negative) 03/30/23 19:40 Urine Nitrite Negative (Negative) 03/30/23 19:40 Urine Bilirubin Negative (Negative) 03/30/23 19:40 Urine Urobilinogen 3.0 mg/dL (<2.0) 03/30/23 19:40 Ur Leukocyte Esterase Trace (Negative) H 03/30/23 19:40 Urine RBC 2 /hpf (0-5) 03/30/23 19:40 Urine WBC 1 /hpf (0-5) 03/30/23 19:40 Ur Squamous Epith Cells 3 /hpf (0-4) 03/30/23 19:40 Urine Mucus Rare /hpf (None) H 03/30/23 19:40 Urine HCG, Qual Not Detected (Not Detectd) 03/30/23 19:40 Salicylates <1.0 mg/dL 03/30/23 19:40 Urine Opiates Screen Not Detected (NotDetected) 03/30/23 19:40 Ur Oxycodone Screen Detected (NotDetected) H 03/30/23 19:40 Urine Methadone Screen Not Detected (NotDetected) 03/30/23 19:40 Ur Propoxyphene Screen Not Detected (NotDetected) 03/30/23 19:40 Acetaminophen <10.0 ug/mL 03/30/23 19:40 Ur Barbiturates Screen Not Detected (NotDetected) 03/30/23 19:40 U Tricyclic Antidepress Not Detected (NotDetected) 03/30/23 19:40 Ur Phencyclidine Scrn Not Detected (NotDetected) 03/30/23 19:40 Ur Amphetamines Screen Not Detected (NotDetected) 03/30/23 19:40 U Methamphetamines Scrn Not Detected (NotDetected) 03/30/23 19:40 U Benzodiazepines Scrn Not Detected (NotDetected) 03/30/23 19:40 Urine Cocaine Screen Not Detected (NotDetected) 03/30/23 19:40 U Marijuana (THC) Screen Detected (NotDetected) H 03/30/23 19:40 Serum Alcohol <10 mg/dL 03/30/23 19:40 Assessment Major depressive disorder Intentional overdose Nicotine dependence Plan: -At this time patient DOES meet criteria for inpatient psychiatric admission. The standard of care would have the patient be admitted involuntarily on the psychiatric unit. However, after significant discussion with the patient's family and with the patient, we are foregoing inpatient psychiatric admission for a less restrictive option. The patient's family acknowledges that this is not the standard of care. The patient has numerous protective factors weighing in on the decision including: supervision of her medications by her , no access to firearms other weapons, duty to her family, attempts prior to this overdose, alevism beliefs against suicide, strong family support, future and goal orientation, and the pursuit of aftercare. -Delirium precautions recommended with patient including - avoiding use of narcotics and [employer]OR sedatives, limit anticholinergic medications when possible, frequent re-orientation, minimize use of restraints, open window shades during the day and close them at night -Would recommend the following medication changes/additions: No medication recommendations are made at this time -The patient signed an AMA form for discharge. The risks, benefits, and treatment options were discussed with the family and the patient in detail. They understand that this is not the standard of care. However, protective factors, appropriate safety planning, and alternative treatment will be utilized. Patient is cleared for discharge by Psychiatry.
--- NOTE | 2023-04-01 14:49 | P.DS ---
Providers Date of admission: 03/31/23 13:57 Expected date of discharge: 04/01/23 Attending physician: Alexandrea Carrasquillo MD Consults: 03/30/23 21:44 Consult Physician Routine Consulting Provider: Jose Gasca Consult Reason/Comments: psych Do you want consulting provider notified?: Yes Primary care physician: Stated None Hospital Course: Metabolic Encephalopathy secondary to Intentional Drug Overdose Suicidal Attempt 58-year-old female with history of depression brought in by family due to suspected intentional overdose on her medications and a suicidal attempt. Pt wa s brought in for monitoring and mental status did recover to baseline. Pt seen by psychiatry who recommended inpatient hospitalization for mental health, but patient and adamantly refused and withdrew their petition. Pt ultimately left against medical advice. Gen: awake, alert HEENT: normocephalic, atraumatic, good hearing acuity, moist mucous membranes Resp: good air exchange, breathing comfortably with no accessory muscle use CVS: good distal perfusion x 4, GI: soft, NTTP, ND : no SPT, no CVAT, knight catheter not present MSK: no pitting edema, no clubbing Neuro: non-focal, moving all extremities Psych: cooperative, euthymic mood Patient Condition at Discharge: Fair Plan - Discharge Summary New Discharge Prescriptions: No Action Ferrous Sulfate [Feosol] 325 mg PO BID DULoxetine HCL [Cymbalta] 60 mg PO DAILY Atorvastatin [Lipitor] 20 mg PO DAILY Omeprazole 20 mg PO DAILY Albuterol Sulfate [Proair Hfa] 1 - 2 puff INHALATION RT-Q6H PRN PRN Reason: Shortness Of Breath Discharge Medication List Albuterol Sulfate [Proair Hfa] 1 - 2 puff INHALATION RT-Q6H PRN 03/30/23 [History] Atorvastatin [Lipitor] 20 mg PO DAILY 03/30/23 [History] DULoxetine HCL [Cymbalta] 60 mg PO DAILY 03/30/23 [History] Ferrous Sulfate [Feosol] 325 mg PO BID 03/30/23 [History] Omeprazole 20 mg PO DAILY 03/30/23 [History] Follow up Appointment(s)/Referral(s): None,Stated [Primary Care Provider] - 1-2 days Patient Instructions/Handouts: Adult Overdose (ED) Discharge Disposition: LEFT AGAINST MEDICAL ADVICE
[2023-04-01] MEDS ORDERED: ATORVASTATIN 20 MG TAB PO SCH (20:00)
== END 2023-04-01 14:37 | disposition left against medical advice (07) ==
LOC: EC 19:09 → 6NMEDSUR 21:47 → 3SCARD 22:40 → INTOOBSV 03-31 13:57 → OBSVTOIN 03-31 13:57 → UNDODISIN 04-01 14:37
PROVIDERS: ADMIT Internal Medicine; ATTEND Internal Medicine
DX: T43.212A Poisoning by selective serotonin and norepinephrine reuptake inhibitors, intentional self-harm, initial encounter (principal); G92.8 Other toxic encephalopathy; F31.9 Bipolar disorder, unspecified; J44.9 Chronic obstructive pulmonary disease, unspecified; M79.7 Fibromyalgia; K21.9 Gastro-esophageal reflux disease without esophagitis; F17.200 Nicotine dependence, unspecified, uncomplicated; Z56.0 Unemployment, unspecified; Z79.899 Other long term (current) drug therapy; Z53.29 Procedure and treatment not carried out because of patient's decision for other reasons
CPT/HCPCS: 96376; 96374; 96375; 99285; 36415; 94760 ×2; 93005; 80053; 85025; 81001; 81025; 80306; 80143; 80179; G0378 ×4; G0480; J2060; J1200; 80320